=== PATIENT | male | born 1950 | race American Indian/Alaskan Native ===

== ENCOUNTER 2021-12-19 23:03 | Inpatient (IN) | payer MEDICARE, OTHER ==
--- NOTE | 2021-12-20 00:12 | Emergency Department Report ---
ED General Adult HPI - General Chief complaint: High BP Stated complaint: HTN, WEAKNESS Time Seen by Provider: 12/19/21 23:49 Source: patient, EMS (Verbal report received from emergency medical services. EMS documentation not available at time of chart dictation ), RN notes reviewed, old records reviewed Mode of arrival: Stretcher Limitations: Altered Mental Status, Physical Limitation - History of Present Illness Initial comments: The patient was evaluated in the emergency department for symptoms described in the history of present illness. He/she was evaluated in the context of the global COVID-19 pandemic, which necessitated consideration that the patient might be at risk for infection with the virus that causes COVID-19. Institutional protocols and algorithms that pertain to the evaluation of patients at risk for COVID-19 are in a state of rapid change based on information released by regulatory bodies including the CDC and federal and state organizations. These policies and algorithms were followed during the patient's care in the emergency department. Please note that these policies, procedures and recommendations changed on a rapid basis. Past medical history: Hypertension, stroke, contracture, left upper extremity weakness, known history of cervical cord compression. Admitted to this hospital June 2021. Subacute rehab was approved and recommended, patient initially agreed to go for subacute rehab, but then at last-minute refused. Discharged home with home health with 16/02 family supervision. Also has a past medical history of rhabdomyolysis. The patient is a pleasant and cooperative 71-year-old gentleman. The patient endorses no complaints. He is brought to the hospital by emergency medical services. As per EMS verbal report, an unknown individual contacted emergency medical services. EMS reports the patient is found at home, covered in feces, and laying down. His last known well time is not known. EMS reports that there is a camera in the room, the forming and assembling supervisor/data center operator of which is not known. The patient is awake and alert to name, but he does not recall the month, year, or the president. However, with prodding, he was able to recall the president's name. He denies physical pain, chest pain, urinary symptoms at this time. He is pleasant and cooperative -: unknown - Related Data Previous Rx's Medication Instructions Recorded Last Taken Type amLODIPine 5 mg PO DAILY #30 tab 05/07/16 07/11/21 09:00 Rx traMADoL [Ultram 50 MG tab] 50 mg PO Q6HR PRN #10 tablet 05/07/16 07/10/21 20:35 Rx Aspirin EC [Halfprin EC] 81 mg PO QDAY #30 tablet. 07/22/21 Unknown Rx Allergies Allergy/AdvReac Type Severity Reaction Status Date / Time No Known Allergies Allergy Verified 07/12/21 23:43 ED Review of Systems ROS: Stated complaint: HTN, WEAKNESS Other details as noted in HPI Comment: All other systems reviewed and negative ED Past Medical Hx - Past Medical History Hx Hypertension: Yes Hx CVA: Yes (LEFT SIDED WEAKNESS 2013) Hx Congestive Heart Failure: No Hx Diabetes: Yes Hx Sickle Cell Disease: No Hx Asthma: No Hx COPD: No Hx Dementia: Yes Hx HIV: No - Social History Smoking Status: Never Smoker - Medications Home Medications: Home Medications Medication Instructions Recorded Confirmed Last Taken Type amLODIPine 5 mg PO DAILY #30 tab 05/07/16 07/14/21 07/11/21 09:00 Rx traMADoL [Ultram 50 MG tab] 50 mg PO Q6HR PRN #10 tablet 05/07/16 07/14/21 07/10/21 20:35 Rx Aspirin EC [Halfprin EC] 81 mg PO QDAY #30 tablet. 07/22/21 Unknown Rx ED Physical Exam - General Limitations: Altered Mental Status, Physical Limitation General appearance: in no apparent distress - Head Head exam: Present: atraumatic, normocephalic - Eye Eye exam: Present: normal appearance, EOMI. Absent: nystagmus - ENT ENT exam: Present: normal exam, normal orophraynx, mucous membranes moist, normal external ear exam - Neck Neck exam: Present: normal inspection, full ROM. Absent: tenderness, meningismus - Respiratory Respiratory exam: Present: normal lung sounds bilaterally. Absent: respiratory distress, wheezes, rales, rhonchi, stridor, decreased breath sounds - Cardiovascular Cardiovascular Exam: Present: regular rate, normal rhythm, normal heart sounds. Absent: bradycardia, tachycardia, irregular rhythm, systolic murmur, diastolic murmur, rubs, gallop - GI/Abdominal GI/Abdominal exam: Present: soft. Absent: distended, tenderness, guarding, rebound, rigid, pulsatile mass - Rectal Rectal exam: Absent: normal inspection (Pressure ulcer is noted on the left gluteal cheek) - Extremities Exam Extremities exam: Present: full ROM (Right arm and right leg). Absent: normal inspection (Contractures noted to left arm) - Back Exam Back exam: Present: normal inspection. Absent: tenderness, CVA tenderness (R), CVA tenderness (L), paraspinal tenderness, vertebral tenderness - Neurological Exam Neurological exam: Present: altered (Patient is awake and alert to name and follows commands. Does not know the year.), other (There is no facial droop. The tongue is midline. 5/5 strength right arm and right leg. Contractures not ed in left arm. Sensation is intact to light touch left arm and left leg.). Absent: normal gait (Patient not able to walk) - Psychiatric Psychiatric exam: Present: normal affect, normal mood - Skin Skin exam: Present: warm, dry, intact, normal color. Absent: rash ED Course Vital Signs 12/19/21 12/20/21 23:09 01:48 Temperature 98.2 F Pulse Rate 60 100 H Respiratory 20 Rate Blood Pressure 135/74 Blood Pressure 190/110 [Right] O2 Sat by Pulse 99 Oximetry - Reevaluation(s) Reevaluation #1: 12/20/21 00:40 Differential diagnosis, including but not limited to: Disability, pneumonia, UTI, elevated CK, rhabdomyolysis, stroke, hypertension, case management patient Assessment and plan: 71-year-old gentleman who clearly cannot take care of himself, found at home, covered in feces, with a report of camera in the room, managed by an unknown individual, slightly confused, with elevated blood pressure, last known well time is not known. Place patient on desk monitor, gown, obtain laboratory studies EKG, chest x- ray, urinalysis, noncontrast CT scan of the brain. Start gentle fluids, and antihypertensive therapy. Reassess. 12/20/21 01:42 Laboratory studies are reviewed and appreciated. Suspect that elevated troponin is a type II troponin leak. CAT scan of the brain negative for acute findings. Chest x-ray negative for acute findings. Awaiting urinalysis. Aspirin ordered. Patient to be admitted to the medical service for encephalopathy, hypertensive urgency, elevated troponin of nonspecific significance. Hospitalist was paged, awaiting callback 12/20/21 01:49 Dr Jerardo Godinez to admit to [facility] ED Medical Decision Making - Lab Data Result diagrams: 12/20/21 00:19 12/20/21 00:19 Vital Signs 12/19/21 23:09 Temperature 98.2 F Pulse Rate 60 Respiratory 20 Rate Blood Pressure 190/110 [Right] O2 Sat by Pulse 99 Oximetry Lab Results 12/20/21 12/20/21 12/20/21 Range/Units 00:19 00:19 00:19 WBC 5.8 (4.5-11.0) K/mm3 RBC 4.98 (3.65-5.03) M/mm3 Hgb 11.8 (11.8-15.2) gm/dl Hct 37.3 (35.5-45.6) % MCV 75 L (84-94) fl MCH 24 L (28-32) pg MCHC 32 (32-34) % RDW 15.0 (13.2-15.2) % Plt Count 171 (140-440) K/mm3 Lymph % (Auto) 25.2 (13.4-35.0) % [place] % (Auto) 7.4 H (0.0-7.3) % Eos % (Auto) 3.5 (0.0-4.3) % Baso % (Auto) 0.7 (0.0-1.8) % Lymph # (Auto) 1.5 (1.2-5.4) K/mm3 [place] # (Auto) 0.4 (0.0-0.8) K/mm3 Eos # (Auto) 0.2 (0.0-0.4) K/mm3 Baso # (Auto) 0.0 (0.0-0.1) K/mm3 Seg Neutrophils % 63.2 (40.0-70.0) % Seg Neutrophils # 3.7 (1.8-7.7) K/mm3 PT 13.6 (12.2-14.9) Sec. INR 0.94 (0.87-1.13) Sodium 139 (137-145) mmol/L Potassium 3.9 (3.6-5.0) mmol/L Chloride 101.4 (98-107) mmol/L Carbon Dioxide 25 (22-30) mmol/L Anion Gap 17 mmol/L BUN 24 H (9-20) mg/dL Creatinine 1.2 (0.8-1.3) mg/dL Estimated GFR > 60 ml/min BUN/Creatinine Ratio 20 % Glucose 89 (75-100) mg/dL Lactic Acid (0.7-2.0) mmol/L Calcium 9.3 (8.4-10.2) mg/dL Total Bilirubin 0.20 (0.1-1.2) mg/dL AST 24 (5-40) units/L ALT 24 (7-56) units/L Alkaline Phosphatase 67 (35-129) units/L Ammonia (25-60) umol/L Total Creatine Kinase 448 H (55-170) units/L Troponin T 0.045 H (0.00-0.029) ng/mL Total Protein 6.7 (6.3-8.2) g/dL Albumin 3.8 L (3.9-5) g/dL Albumin/Globulin Ratio 1.3 % TSH (0.270-4.200) mlU/mL Salicylates (2.8-20.0) mg/dL Acetaminophen (10.0-30.0) ug/mL Plasma/Serum Alcohol (0-0.07) % 12/20/21 12/20/21 12/20/21 Range/Units 00:19 00:19 00:19 WBC (4.5-11.0) K/mm3 RBC (3.65-5.03) M/mm3 Hgb (11.8-15.2) gm/dl Hct (35.5-45.6) % MCV (84-94) fl MCH (28-32) pg MCHC (32-34) % RDW (13.2-15.2) % Plt Count (140-440) K/mm3 Lymph % (Auto) (13.4-35.0) % [place] % (Auto) (0.0-7.3) % Eos % (Auto) (0.0-4.3) % Baso % (Auto) (0.0-1.8) % Lymph # (Auto) (1.2-5.4) K/mm3 [place] # (Auto) (0.0-0.8) K/mm3 Eos # (Auto) (0.0-0.4) K/mm3 Baso # (Auto) (0.0-0.1) K/mm3 Seg Neutrophils % (40.0-70.0) % Seg Neutrophils # (1.8-7.7) K/mm3 PT (12.2-14.9) Sec. INR (0.87-1.13) Sodium (137-145) mmol/L Potassium (3.6-5.0) mmol/L Chloride (98-107) mmol/L Carbon Dioxide (22-30) mmol/L Anion Gap mmol/L BUN (9-20) mg/dL Creatinine (0.8-1.3) mg/dL Estimated GFR ml/min BUN/Creatinine Ratio % Glucose (75-100) mg/dL Lactic Acid 1.10 (0.7-2.0) mmol/L Calcium (8.4-10.2) mg/dL Total Bilirubin (0.1-1.2) mg/dL AST (5-40) units/L ALT (7-56) units/L Alkaline Phosphatase (35-129) units/L Ammonia 27.0 (25-60) umol/L Total Creatine Kinase (55-170) units/L Troponin T (0.00-0.029) ng/mL Total Protein (6.3-8.2) g/dL Albumin (3.9-5) g/dL Albumin/Globulin Ratio % TSH 2.820 (0.270-4.200) mlU/mL Salicylates (2.8-20.0) mg/dL Acetaminophen (10.0-30.0) ug/mL Plasma/Serum Alcohol (0-0.07) % 12/20/21 12/20/21 12/20/21 Range/Units 00:19 00:19 00:19 WBC (4.5-11.0) K/mm3 RBC (3.65-5.03) M/mm3 Hgb (11.8-15.2) gm/dl Hct (35.5-45.6) % MCV (84-94) fl MCH (28-32) pg MCHC (32-34) % RDW (13.2-15.2) % Plt Count (140-440) K/mm3 Lymph % (Auto) (13.4-35.0) % [place] % (Auto) (0.0-7.3) % Eos % (Auto) (0.0-4.3) % Baso % (Auto) (0.0-1.8) % Lymph # (Auto) (1.2-5.4) K/mm3 [place] # (Auto) (0.0-0.8) K/mm3 Eos # (Auto) (0.0-0.4) K/mm3 Baso # (Auto) (0.0-0.1) K/mm3 Seg Neutrophils % (40.0-70.0) % Seg Neutrophils # (1.8-7.7) K/mm3 PT (12.2-14.9) Sec. INR (0.87-1.13) Sodium (137-145) mmol/L Potassium (3.6-5.0) mmol/L Chloride (98-107) mmol/L Carbon Dioxide (22-30) mmol/L Anion Gap mmol/L BUN (9-20) mg/dL Creatinine (0.8-1.3) mg/dL Estimated GFR ml/min BUN/Creatinine Ratio % Glucose (75-100) mg/dL Lactic Acid (0.7-2.0) mmol/L Calcium (8.4-10.2) mg/dL Total Bilirubin (0.1-1.2) mg/dL AST (5-40) units/L ALT (7-56) units/L Alkaline Phosphatase (35-129) units/L Ammonia (25-60) umol/L Total Creatine Kinase (55-170) units/L Troponin T (0.00-0.029) ng/mL Total Protein (6.3-8.2) g/dL Albumin (3.9-5) g/dL Albumin/Globulin Ratio % TSH (0.270-4.200) mlU/mL Salicylates < 0.3 L (2.8-20.0) mg/dL Acetaminophen 5.0 L (10.0-30.0) ug/mL Plasma/Serum Alcohol < 0.01 (0-0.07) % - EKG Data -: EKG Interpreted by Tn EKG shows normal: sinus rhythm Rate: normal - EKG Data 12/20/21 00:36 The EKG is interpreted at 23: 47 Sinus rhythm, 62 bpm. Leftward axis deviation, left anterior fascicular block, left ventricular hypertrophy. This is an abnormal EKG. This is not a STEMI. There is motion artifact, QTC 4 3 7 ms. QRS 1 1 7 ms. Essentially appears to be unchanged from prior EKG from 06/2021 - Radiology Data Radiology results: pending, report reviewed, image reviewed CHEST 1 VIEW INDICATION / CLINICAL INFORMATION: Altered Mental Status STUDY TIME: 18 COMPARISON: 07/13/2021 FINDINGS: SUPPORT DEVICES: None HEART / MEDIASTINUM: No significant abnormality. LUNGS / PLEURA: Patient's arm obscures much of the chest making evaluation quite difficult, particularly of the left hemithorax. No definite pneumonic infiltrate is seen as best can be determined. No obvious pleural effusions are seen. No pneumothorax. ADDITIONAL FINDINGS: No significant additional findings. Signer Name: Eldon Nuñez MD Signed: 12/20/2021 12:18 AM Workstation Name: [employer] CT HEAD WITHOUT CONTRAST INDICATION: Altered Mental Status TECHNIQUE: All CT scans at this location are performed using CT dose reduction for ALARA by means of automated exposure control. COMPARISON: None available. FINDINGS: BRAIN: No hemorrhage or mass effect are seen. No evidence of acute infarction is noted. The prominent dilatation of the lateral and third ventricles is again seen without change. This is again greater in the right lateral ventricle than the left. Mild cortical atrophic changes are again seen. Mild white matter microvascular changes are noted. Small area of hypodensity is again seen in the upper left parietal cortex. ORBITS: Normal as visualized. SOFT TISSUES OF HEAD: Normal. CALVARIUM: Normal. VISUALIZED PARANASAL SINUSES AND MASTOID AIR CELLS: Clear. ADDITIONAL FINDINGS: None. IMPRESSION: No acute intracranial abnormality. Signer Name: Eldon Nuñez MD Signed: 12/20/2021 12:36 AM Workstation Name: [employer] Critical care attestation.: If time is entered above; I have spent that time in minutes in the direct care of this critically ill patient, excluding procedure time. ED Disposition Clinical Impression: Hypertensive urgency, Elevated troponin, Left hemiparesis, History of stroke, Confusion Disposition: 09 ADMITTED INPATIENT Is pt being admited?: Yes Does the pt Need Aspirin: Yes Condition: Stable
[2021-12-20 00:40] LABS: Basophils % (Auto) 0.7 % (0.0-1.8); Eosinophils # (Auto) 0.2 K/mm3 (0.0-0.4); Eosinophils % (Auto) 3.5 % (0.0-4.3); Hematocrit 37.3 % (35.5-45.6); Hemoglobin 11.8 gm/dl (11.8-15.2); Lymphocytes # (Auto) 1.5 K/mm3 (1.2-5.4); Lymphocytes % (Auto) 25.2 % (13.4-35.0); Mean Corpuscular HGB Conc 32 % (32-34); Mean Corpuscular Volume 75 fl (84-94); Monocytes # (Auto) 0.4 K/mm3 (0.0-0.8); Monocytes % (Auto) 7.4 % (0.0-7.3); Platelet Count 171 K/mm3 (140-440); Red Blood Count 4.98 M/mm3 (3.65-5.03)
[2021-12-20] MEDS ORDERED: SODIUM CHLORIDE 0.9% 500 ML 500 ML IV ONE (00:41)
[2021-12-20] MEDS ORDERED: hydrALAZINE 20 MG/1 ML INJ IV ONE (00:41)
[2021-12-20 00:59] LABS: Alanine Aminotransferase 24 units/L (7-56); Albumin 3.8 g/dL (3.9-5); BUN/Creatinine Ratio 20; Blood Urea Nitrogen 24 mg/dL (9-20); Calcium 9.3 mg/dL (8.4-10.2); Hemolysis Index 12
[2021-12-20 01:13] LABS: INR 0.94 (0.87-1.13)
[2021-12-20 01:14] LABS: Partial Thromboplastin Time 37.1 Sec. (24.2-36.6)
[2021-12-20 01:21] LABS: Chol/HDL Ratio 3.08 %; HDL Cholesterol 72 mg/dL (40-59); LDL Cholesterol,Direct 129 mg/dL (50-130)
--- NOTE | 2021-12-20 01:23 | XRay Report ---
CHEST 1 VIEW INDICATION / CLINICAL INFORMATION: Altered Mental Status STUDY TIME: 18 COMPARISON: 07/13/2021 FINDINGS: SUPPORT DEVICES: None HEART / MEDIASTINUM: No significant abnormality. LUNGS / PLEURA: Patient's arm obscures much of the chest making evaluation quite difficult, particula rly of the left hemithorax. No definite pneumonic infiltrate is seen as best can be determined. No ob vious pleural effusions are seen. No pneumothorax. ADDITIONAL FINDINGS: No significant additional findings. Signer Name: Eldon Nuñez MD Signed: 12/20/2021 1:18 AM Workstation Name: [id number]
[2021-12-20 01:32] LABS: Bilirubin,Urine NEG (Negative); Blood,Urine SM (Negative); Color,Urine Yellow (Yellow); Protein,Urine <15 mg/dL mg/dL (Negative); RBC,Urine < 1.0 /HPF (0.0-6.0); WBC,Urine < 1.0 /HPF (0.0-6.0)
--- NOTE | 2021-12-20 01:40 | Cat Scan Report ---
CT HEAD WITHOUT CONTRAST INDICATION: Altered Mental Status TECHNIQUE: All CT scans at this location are performed using CT dose reduction for ALARA by means of automated exposure control. COMPARISON: None available. FINDINGS: BRAIN: No hemorrhage or mass effect are seen. No evidence of acute infarction is noted. The prominent dilatation of the lateral and third ventricles is again seen without change. This is again greater i n the right lateral ventricle than the left. Mild cortical atrophic changes are again seen. Mild whit e matter microvascular changes are noted. Small area of hypodensity is again seen in the upper left p arietal cortex. ORBITS: Normal as visualized. SOFT TISSUES OF HEAD: Normal. CALVARIUM: Normal. VISUALIZED PARANASAL SINUSES AND MASTOID AIR CELLS: Clear. ADDITIONAL FINDINGS: None. IMPRESSION: No acute intracranial abnormality. Signer Name: Eldon Nuñez MD Signed: 12/20/2021 1:36 AM Workstation Name: [id number]
[2021-12-20] MEDS ORDERED: ASPIRIN 81 MG TAB CHEW PO ONE (01:43)
[2021-12-20] MEDS ORDERED: MAGNESIUM HYDROXIDE (MOM) ORAL LIQD UDC PO PRN (02:46)
[2021-12-20] MEDS ORDERED: MORPHINE 2 MG/1 ML INJ IV PRN (02:46)
[2021-12-20] MEDS ORDERED: MORPHINE 4 MG/1 ML INJ IV PRN (02:46)
[2021-12-20] MEDS ORDERED: DEXTROSE 50% IN WATER (25GM) 50 ML SYRINGE IV PRN (02:46)
[2021-12-20] MEDS ORDERED: ACETAMINOPHEN 325 MG TAB PO PRN (02:46)
[2021-12-20] MEDS ORDERED: ONDANSETRON 4 MG/2 ML INJ IV PRN (02:46)
--- NOTE | 2021-12-20 02:58 | History and Physical Report ---
History of Present Illness Date of examination: 12/20/21 Date of admission: 12/20/2021 Chief complaint: Altered Mental Status History of present illness: 71-year-old -[place] male with known history of hypertension, CVA with residual left-sided upper extremity weakness, contracture and history of cervical cord compression brought into the emergency room today for evaluation of confusion. There was a welfare check on patient today and patient was said to have been found at home confused and covered in feces lying down. Patient was admitted sometime in June 2021 and was supposed to be going for subacute rehab which he turned out. He lives by himself at home. He has home health. Patient denies any fever or chills, no chest pain or shortness of breath, no nausea vomiting and no abdominal pain. He denies any hematuria or dysuria. Upon arrival in the emergency room blood pressure was quite elevated and patient was given IV hydralazine with some improvement. Work-up in the emergency room today, chest x-ray shows no acute findings. CT of the head shows no acute findings. Past History Past Medical History: diabetes, stroke (With left sided weakness) Past Surgical History: No surgical history Social history: no significant social history Family history: no significant family history Medications and Allergies Allergies Allergy/AdvReac Type Severity Reaction Status Date / Time No Known Allergies Allergy Verified 07/12/21 23:43 Home Medications Medication Instructions Recorded Confirmed Last Taken Type amLODIPine 5 mg PO DAILY #30 tab 05/07/16 07/14/21 07/11/21 09:00 Rx traMADoL [Ultram 50 MG tab] 50 mg PO Q6HR PRN #10 tablet 05/07/16 07/14/21 07/10/21 20:35 Rx Aspirin EC [Halfprin EC] 81 mg PO QDAY #30 tablet 07/22/21 Unknown Rx Active Meds: Active Medications Acetaminophen (Acetaminophen 325 Mg Tab) 650 mg PO Q4H PRN PRN Reason: Pain MILD(1-3)/Fever >100.5/BROWN Dextrose (Dextrose 50% In Water (25gm) 50 Ml Syringe) 50 ml IV Q30MIN PRN; Protocol PRN Reason: Hypoglycemia Insulin Human Lispro (Insulin Lispro 100 Unit/Ml) 0 unit SUB-Q ACHS KRISTINA; Protocol Magnesium Hydroxide (Magnesium Hydroxide (Mom) Oral Liqd Udc) 30 ml PO Q4H PRN PRN Reason: Constipation Morphine Sulfate (Morphine 2 Mg/1 Ml Inj) 2 mg IV Q4H PRN PRN Reason: Pain, Moderate (4-6) Morphine Sulfate (Morphine 4 Mg/1 Ml Inj) 4 mg IV Q4H PRN PRN Reason: Pain , Severe (7-10) Ondansetron HCl (Ondansetron 4 Mg/2 Ml Inj) 4 mg IV Q8H PRN PRN Reason: Nausea And Vomiting Sodium Chloride (Sodium Chloride 0.9% 10 Ml Flush Syringe) 10 ml IV BID KRISTINA Sodium Chloride (Sodium Chloride 0.9% 10 Ml Flush Syringe) 10 ml IV PRN PRN PRN Reason: LINE FLUSH Review of Systems Constitutional: no fever, no chills Ears, nose, mouth and throat: no nasal congestion, no sore throat Cardiovascular: no chest pain, no palpitations Respiratory: no cough, no shortness of breath Gastrointestinal: no abdominal pain, no nausea, no vomiting, no diarrhea Genitourinary Male: no dysuria, no hematuria, no nocturia Musculoskeletal: no neck pain, no low back pain Integumentary: no rash, no pruritis Neurological: confusion, no headaches Psychiatric: no anxiety, no depression Endocrine: no polyphagia, no polydipsia, no polyuria, no nocturia Exam - Constitutional Vitals: Temp Pulse Resp BP Pulse Ox 98.2 F 100 H 20 135/74 99 12/19/21 23:09 12/20/21 01:48 12/19/21 23:09 12/20/21 01:48 12/19/21 23:09 General appearance: Present: no acute distress, well-nourished - EENT Eyes: Present: PERRL, EOM intact. Absent: scleral icterus ENT: hearing intact, clear oral mucosa, dentition normal - Neck Neck: Present: supple, normal ROM - Respiratory Respiratory effort: normal Respiratory: bilateral: CTA - Cardiovascular Rhythm: regular Heart Sounds: Present: S1 & S2. Absent: gallop, systolic murmur, diastolic murmur, rub, click - Extremities Extremities: no ischemia, No edema, abnormal (Contracture left upper extremity) Peripheral Pulses: within normal limits - Abdominal General gastrointestinal: Present: soft, non-tender, non-distended, normal bowel sounds. Absent: mass - Integumentary Integumentary: Present: clear, warm, dry, normal turgor. Absent: rash - Musculoskeletal Musculoskeletal: strength equal bilaterally - Psychiatric Psychiatric: appropriate mood/affect, intact judgment & insight, memory intact, cooperative - Neurologic Neurologic: CNII-XII intact, no focal deficits, moves all extremities HEART Score - HEART Score Troponin: Troponin T 0.045 ng/mL (0.00-0.029) H 12/20/21 00:19 Results - Labs CBC & Chem 7: 12/20/21 00:19 12/20/21 00:19 Labs: Abnormal lab results 12/20/21 12/20/21 12/20/21 Range/Units 00:19 00:19 00:19 MCV 75 L (84-94) fl MCH 24 L (28-32) pg [place] % (Auto) 7.4 H (0.0-7.3) % APTT 37.1 H (24.2-36.6) Sec. BUN 24 H (9-20) mg/dL Total Creatine Kinase 448 H (55-170) units/L Troponin T 0.045 H (0.00-0.029) ng/mL Albumin 3.8 L (3.9-5) g/dL Cholesterol 222 H (50-199) mg/dL HDL Cholesterol 72 H (40-59) mg/dL Salicylates (2.8-20.0) mg/dL Acetaminophen (10.0-30.0) ug/mL 12/20/21 12/20/21 Range/Units 00:19 00:19 MCV (84-94) fl MCH (28-32) pg [place] % (Auto) (0.0-7.3) % APTT (24.2-36.6) Sec. BUN (9-20) mg/dL Total Creatine Kinase (55-170) units/L Troponin T (0.00-0.029) ng/mL Albumin (3.9-5) g/dL Cholesterol (50-199) mg/dL HDL Cholesterol (40-59) mg/dL Salicylates < 0.3 L (2.8-20.0) mg/dL Acetaminophen 5.0 L (10.0-30.0) ug/mL Assessment and Plan - Patient Problems (1) Confusion Current Visit: No Status: Acute Plan to address problem: Patient back to baseline Work-up so far has been negative Will monitor mental status. Check MRI of the brain to rule out CVA. (2) Elevated troponin Current Visit: No Status: Acute Plan to address problem: Possibly type II troponin leak However will trend troponin levels. Consult placed to cardiology for recommendations. (3) Hypertensive urgency Current Visit: No Status: Acute Plan to address problem: We will resume routine home medications and monitor vital signs closely. (4) DVT prophylaxis Current Visit: No Status: Acute Plan to address problem: Patient placed on subcutaneous heparin. (5) Full code status Current Visit: No Status: Acute Plan to address problem: Patient is full code.
[2021-12-20] MEDS ORDERED: SODIUM CHLORIDE 0.9% 1000 ML 1,000 ML IV SCH (05:15)
[2021-12-20] MEDS: cefTRIAXone/NS 1 GM/50 ML 1 GM/50 ML BAG IV SCH (07:32)
[2021-12-20] MEDS: INSULIN LISPRO 100 UNIT/ML SUB-Q SCH ×4 (08:37→21:04)
--- NOTE | 2021-12-20 10:52 | Consultation ---
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 There was a welfare check on patient today and patient was said to have been found at home confused and covered in feces lying down. Patient was admitted sometime in June 2021 and was supposed to be going for subacute rehab which he turned out. He lives by himself at home. He has home health. Patient denies any fever or chills, no chest pain or shortness of breath, no nausea vomiting and no abdominal pain. He denies any hematuria or dysuria. Upon arrival in the emergency room blood pressure was quite elevated and patient was given IV hydralazine with some improvement. Work-up in the emergency room today, chest x-ray shows no acute findings. CT of the head shows no acute findings. Neurology consulted for evaluation of status--today he is alert he is with border line mental incapacity lives alone, he is with hx of CP and left side weaknmess since 4 years old , denied hx of seizure in ER BP was elevated as well as CPK he was in fecal and bladder incontinence confused. Past History Past Medical History: diabetes, stroke (With left sided weakness) Cerebral palsy Past Surgical History: No surgical history Social history: no significant social history Family history: no significant family history Medications and Allergies Allergies Allergy/AdvReac Type Severity Reaction Status Date / Time No Known Allergies Allergy Verified 07/12/21 23:43 Home Medications Medication Instructions Recorded Confirmed Last Taken Type amLODIPine 5 mg PO DAILY #30 tab 05/07/16 07/14/21 07/11/21 09:00 Rx traMADoL [Ultram 50 MG tab] 50 mg PO Q6HR PRN #10 tablet 05/07/16 07/14/21 07/10/21 20:35 Rx Aspirin EC [Halfprin EC] 81 mg PO QDAY #30 tablet 07/22/21 Unknown Rx Active Meds: Active Medications Acetaminophen (Acetaminophen 325 Mg Tab) 650 mg PO Q4H PRN PRN Reason: Pain MILD(1-3)/Fever >100.5/BROWN Dextrose (Dextrose 50% In Water (25gm) 50 Ml Syringe) 50 ml IV Q30MIN PRN; Protocol PRN Reason: Hypoglycemia Insulin Human Lispro (Insulin Lispro 100 Unit/Ml) 0 unit SUB-Q ACHS KRISTINA; Protocol Magnesium Hydroxide (Magnesium Hydroxide (Mom) Oral Liqd Udc) 30 ml PO Q4H PRN PRN Reason: Constipation Morphine Sulfate (Morphine 2 Mg/1 Ml Inj) 2 mg IV Q4H PRN PRN Reason: Pain, Moderate (4-6) Morphine Sulfate (Morphine 4 Mg/1 Ml Inj) 4 mg IV Q4H PRN PRN Reason: Pain , Severe (7-10) Ondansetron HCl (Ondansetron 4 Mg/2 Ml Inj) 4 mg IV Q8H PRN PRN Reason: Nausea And Vomiting Sodium Chloride (Sodium Chloride 0.9% 10 Ml Flush Syringe) 10 ml IV BID KRISTINA Sodium Chloride (Sodium Chloride 0.9% 10 Ml Flush Syringe) 10 ml IV PRN PRN PRN Reason: LINE FLUSH Review of Systems Constitutional: no fever, no chills Ears, nose, mouth and throat: no nasal congestion, no sore throat Cardiovascular: no chest pain, no palpitations Respiratory: no cough, no shortness of breath Gastrointestinal: no abdominal pain, no nausea, no vomiting, no diarrhea Genitourinary Male: no dysuria, no hematuria, no nocturia Musculoskeletal: no neck pain, no low back pain Integumentary: no rash, no pruritis Neurological: confusion, no headaches Psychiatric: no anxiety, no depression Endocrine: no polyphagia, no polydipsia, no polyuria, no nocturia Exam Past History Past Medical History: diabetes, stroke (With left sided weakness) Past Surgical History: No surgical history Social history: no significant social history Family history: no significant family history Medications and Allergies Allergies Allergy/AdvReac Type Severity Reaction Status Date / Time No Known Allergies Allergy Verified 07/12/21 23:43 Home Medications Medication Instructions Recorded Confirmed Last Taken Type amLODIPine 5 mg PO DAILY #30 tab 05/07/16 07/14/21 07/11/21 09:00 Rx traMADoL [Ultram 50 MG tab] 50 mg PO Q6HR PRN #10 tablet 05/07/16 07/14/21 07/10/21 20:35 Rx Aspirin EC [Halfprin EC] 81 mg PO QDAY #30 tablet. 07/22/21 Unknown Rx Active Meds: Active Medications Acetaminophen (Acetaminophen 325 Mg Tab) 650 mg PO Q4H PRN PRN Reason: Pain MILD(1-3)/Fever >100.5/BROWN Dextrose (Dextrose 50% In Water (25gm) 50 Ml Syringe) 0 ml IV Q30MIN PRN; Protocol PRN Reason: Hypoglycemia Sodium Chloride (Nacl 0.9% 1000 Ml) 1,000 mls @ 75 mls/hr IV DIRECT KRISTINA Ceftriaxone Sodium (Rocephin/Ns 1 Gm/50 Ml) 1 gm in 50 mls @ 100 mls/hr IV Q24H KRISTINA; Protocol Last Admin: 12/20/21 07:32 Dose: 100 mls/hr Insulin Human Lispro (Insulin Lispro 100 Unit/Ml) 0 unit SUB-Q ACHS KRISTINA; Protocol Last Admin: 12/20/21 08:37 Dose: Not Given Magnesium Hydroxide (Magnesium Hydroxide (Mom) Oral Liqd Udc) 30 ml PO Q4H PRN PRN Reason: Constipation Morphine Sulfate (Morphine 2 Mg/1 Ml Inj) 2 mg IV Q4H PRN PRN Reason: Pain, Moderate (4-6) Last Admin: 12/20/21 07:33 Dose: 2 mg Morphine Sulfate (Morphine 4 Mg/1 Ml Inj) 4 mg IV Q4H PRN PRN Reason: Pain , Severe (7-10) Ondansetron HCl (Ondansetron 4 Mg/2 Ml Inj) 4 mg IV Q8H PRN PRN Reason: Nausea And Vomiting Sodium Chloride (Sodium Chloride 0.9% 10 Ml Flush Syringe) 10 ml IV BID KRISTINA Last Admin: 12/20/21 09:11 Dose: Not Given Sodium Chloride (Sodium Chloride 0.9% 10 Ml Flush Syringe) 10 ml IV PRN PRN PRN Reason: LINE FLUSH Physical Examination - Vital Signs Vital Signs: Vital Signs Temp Pulse Resp BP Pulse Ox 98.2 F 60 20 190/110 99 12/19/21 23:09 12/19/21 23:09 12/19/21 23:09 12/19/21 23:09 12/19/21 23:09 - Constitutional General appearance: comfortable - EENT EENT: Present: PERRL, mucous membranes moist - Respiratory Respiratory: Present: lungs clear, rhonchi - Cardiovascular Cardiovascular: Present: regular rate, normal S1, normal S2 Extremities: Present: no peripheral edema bilatateraly, no clubbing, cyanosis - Gastrointestinal Gastrointestinal: Present: normoactive bowel sounds - Integumentary Integumentary: Present: normal - Neurologic Cranial nerve examination: PERRL, EOMI, facial droop Speech examination: intact Detailed motor examination: other (he is with left side contracture upper> lower , none sustained clonus L>R) - Psychiatric Psychiatric: Present: other (alert oriented to hospital birthdate, not date,not president name ) Results - Laboratory Findings CBC and BMP: 12/20/21 00:19 12/20/21 00:19 Abnormal Lab Findings: Abnormal Labs 12/20/21 12/20/21 12/20/21 00:19 00:19 00:19 MCV 75 L MCH 24 L [place] % (Auto) 7.4 H APTT 37.1 H BUN 24 H Total Creatine Kinase 448 H Troponin T 0.045 H Albumin 3.8 L Cholesterol 222 H HDL Cholesterol 72 H Salicylates Acetaminophen 12/20/21 12/20/21 00:19 00:19 MCV MCH [place] % (Auto) APTT BUN Total Creatine Kinase Troponin T Albumin Cholesterol HDL Cholesterol Salicylates < 0.3 L Acetaminophen 5.0 L Assessment and Plan Assessment and Plan 71-year-old -Italian male with known history of hypertension, CVA with residual left-sided upper extremity weakness, contracture and history of cervical cord compression brought into the emergency room today for evaluation of confusion. There was a welfare check on patient today and patient was said to have been f ound at home confused and covered in feces lying down. Patient was admitted sometime in June 2021 and was supposed to be going for subacute rehab which he turned out. He lives by himself at home. He has home health. - Patient Problems # Acute Confusional stat resolved -finding from hx and exam is suggestive of seizure -he lives alone and is with borderline mental incapacity -left side weakness related to CP -no hx of seizure -HTN and elevated CPK on admission -EEG today -MRI brainwith gd -Seizure precaution -start Keppra 500 mg po bid -started on ASA #81 mg -LDL#129 -Lipitor 40 mg # Hx of left side weakness -possibly CP since 4 years old -left side myoconus # Hx of spinal cord injury as per record -he is with fecal and bladder incontinence -use Dipper # Elevated troponin Possibly type II troponin leak However will trend troponin levels. Consult placed to cardiology for recommendations. # Hypertensive urgency -We will resume routine home medications and monitor vital signs closely. # DVT prophylaxis -Patient placed on subcutaneous heparin. # Full code status -Patient is full code. PLAN 1- Keppra 500 mg bid 2-Seizure precaution 3- MRI brain w gd 4- EEG 5- Ativan prn for seizure 6- ASA 81 mg and Lipitor 40 mg 7- Maintain BP medications 8- Pt therapy will follow
--- NOTE | 2021-12-20 12:44 | Event Note ---
Date: 12/20/21 Patient seen and examined This is the second visit after midnight Follow neurology recommendation and follow MRI brain result PT EDMOND oliver
[2021-12-20] MEDS: levETIRAcetam 500 MG TAB PO SCH ×2 (14:19→21:04)
--- NOTE | 2021-12-20 16:50 | Magnetic Resonance Report ---
MR brain wo/w con INDICATION / CLINICAL INFORMATION: 71 years Male; Seizure disorder. TECHNIQUE: Multiplanar, multisequence MR images of the brain were obtained. COMPARISON: The study is compared to the previous MRI of 07/15/2021. FINDINGS: BRAIN / INTRACRANIAL CONTENTS: There have been interval evolutionary changes of the extensive areas o f acute infarction involving the cerebral hemispheres, greater on the right, particularly along the r ight frontoparietal junction, from 07/16/2021. There is resulting encephalomalacia. The diffusion ari ging reveals no clear evidence of acute infarction. There is continued prominent enlargement of the third and lateral ventricles, greater on the right wh ich also correlates with the prior study. There is moderate cerebral atrophy which includes the hippo campi. No interval developing extra-axial fluid collections or significant mass effect is identified. The motion particularly degrades the postcontrast sequences, the last be acquired. However, no defin itive intracranial enhancing lesions are appreciated. CRANIOCERVICAL JUNCTION: No significant abnormality. VASCULAR FLOW-VOIDS: No significant abnormality. ORBITS: No significant abnormality of visualized orbits. SINUSES / MASTOIDS: No significant abnormality in the visualized paranasal sinuses or mastoid air benjie ls. ADDITIONAL FINDINGS: None. IMPRESSION: 1. The study is limited by motion. However, there have been interval evolutionary changes of the exte nsive infarcts involving the cerebral hemispheres, greater on the right from 07/15/2021 with developi ng encephalomalacia. There is no clear evidence of acute infarction. 2. There is continued ventriculomegaly and cerebral atrophy, also a detailed above without significan t interval change. Signer Name: Jose Ratliff MD Signed: 12/20/2021 4:45 PM Workstation Name: [id number]
--- NOTE | 2021-12-20 18:21 | Progress Note ---
Subjective Date of service: 12/20/21 Interval history: CONSULT DICTATED REPEAT EKG & TROPONIN. CHECK FOR PRIOR W/UP Objective Vital Signs Temp Pulse Resp BP BP Pulse Ox 12/20/21 12:09 98.3 F 93 H 100/70 95 12/20/21 08:34 22 96 12/20/21 07:36 98.2 F 74 106/58 99 12/20/21 06:06 98.2 F 93 H 18 99/47 130/77 94 12/20/21 04:50 95/66 12/20/21 04:40 104/67 12/20/21 04:20 124/72 12/20/21 04:10 130/68 12/20/21 04:00 123/72 12/20/21 03:58 98.4 F 90 19 155/80 99 12/20/21 03:50 135/67 12/20/21 03:30 131/70 12/20/21 03:20 135/75 12/20/21 03:00 135/53 12/20/21 02:50 158/77 70 L 12/20/21 02:30 146/75 12/20/21 02:20 132/62 12/20/21 02:00 135/59 97 12/20/21 01:48 100 H 135/74 12/20/21 01:45 135/74 95 12/20/21 01:41 96 12/19/21 23:09 98.2 F 60 20 190/110 99 - Labs and Meds Cardiac Enzymes 12/20/21 Range/Units 00:19 AST 24 (5-40) units/L Coagulation 12/20/21 Range/Units 00:19 PT 13.6 (12.2-14.9) Sec. INR 0.94 (0.87-1.13) APTT 37.1 H (24.2-36.6) Sec. Lipids 12/20/21 Range/Units 00:19 Triglycerides 53 (2-149) mg/dL Cholesterol 222 H (50-199) mg/dL HDL Cholesterol 72 H (40-59) mg/dL Cholesterol/HDL Ratio 3.08 % CBC 12/20/21 Range/Units 00:19 WBC 5.8 (4.5-11.0) K/mm3 RBC 4.98 (3.65-5.03) M/mm3 Hgb 11.8 (11.8-15.2) gm/dl Hct 37.3 (35.5-45.6) % Plt Count 171 (140-440) K/mm3 Lymph # (Auto) 1.5 (1.2-5.4) K/mm3 [place] # (Auto) 0.4 (0.0-0.8) K/mm3 Eos # (Auto) 0.2 (0.0-0.4) K/mm3 Baso # (Auto) 0.0 (0.0-0.1) K/mm3 Comprehensive Metabolic Panel 12/20/21 Range/Units 00:19 Sodium 139 (137-145) mmol/L Potassium 3.9 (3.6-5.0) mmol/L Chloride 101.4 (98-107) mmol/L Carbon Dioxide 25 (22-30) mmol/L BUN 24 H (9-20) mg/dL Creatinine 1.2 (0.8-1.3) mg/dL Glucose 89 (75-100) mg/dL Calcium 9.3 (8.4-10.2) mg/dL AST 24 (5-40) units/L ALT 24 (7-56) units/L Alkaline Phosphatase 67 (35-129) units/L Total Protein 6.7 (6.3-8.2) g/dL Albumin 3.8 L (3.9-5) g/dL
[2021-12-21 04:52] LABS: Basophils % (Auto) 0.9 % (0.0-1.8); Eosinophils # (Auto) 0.2 K/mm3 (0.0-0.4); Eosinophils % (Auto) 5.1 % (0.0-4.3); Hematocrit 34.7 % (35.5-45.6); Hemoglobin 11.2 gm/dl (11.8-15.2); Lymphocytes # (Auto) 1.5 K/mm3 (1.2-5.4); Lymphocytes % (Auto) 32.5 % (13.4-35.0); Mean Corpuscular HGB Conc 32 % (32-34); Mean Corpuscular Volume 76 fl (84-94); Monocytes # (Auto) 0.4 K/mm3 (0.0-0.8); Monocytes % (Auto) 7.9 % (0.0-7.3); Platelet Count 141 K/mm3 (140-440); Red Blood Count 4.58 M/mm3 (3.65-5.03); Red Cell Distribution Width 15.1 % (13.2-15.2)
[2021-12-21 05:13] LABS: BUN/Creatinine Ratio 23; Blood Urea Nitrogen 23 mg/dL (9-20); Calcium 8.9 mg/dL (8.4-10.2); Hemolysis Index 1
[2021-12-21] MEDS: cefTRIAXone/NS 1 GM/50 ML 1 GM/50 ML BAG IV SCH (06:03)
--- NOTE | 2021-12-21 09:22 | Progress Note ---
Assessment and Plan Assessment and Plan 71-year-old -[place] male with known history of hypertension, CVA with residual left-sided upper extremity weakness, contracture and history of cervical cord compression brought into the emergency room today for evaluation of confusion. There was a welfare check on patient today and patient was said to have been found at home confused and covered in feces lying down. Patient was admitted sometime in June 2021 and was supposed to be going for subacute rehab which he turned out. He lives by himself at home. He has home health. 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 Consult placed to cardiology for recommendations. # Hypertensive urgency -We will resume routine home medications and monitor vital signs closely. # DVT prophylaxis -Patient placed on subcutaneous heparin. # Full code status -Patient is full code. PLAN 1- Keppra 500 mg bid 2-Seizure precaution 3- Ativan prn for seizure 4- ASA 81 mg and Lipitor 40 mg 5- Maintain BP medications 6- Pt therapy will follow as needed Subjective Date of service: 12/21/21 Interval history: doing well ,disoriented to date or place,knows his birthday.follow commands, no ore confusion is noted MRI brain remarkable for remote right MCA infarct with encephalomalacia old EEG mild back ground slowing LDL#129 Objective - Vital Sign Vital Signs - 12hr 12/20/21 12/21/21 12/21/21 22:00 00:07 08:17 Temperature 98.2 F 98.2 F Pulse Rate 88 74 74 Respiratory 18 18 Rate Blood Pressure 137/74 Blood Pressure 130/76 [Right] O2 Sat by Pulse 99 90 Oximetry - General Apperance Constitutional: comfortable - EENT EENT: PERRL, mucous membranes moist - Respiratory Respiratory: lungs clear, rhonchi - Cardiovascular Cardiovascular: regular rate, normal S1, normal S2 Extremities: no peripheral edema bilat, no clubbing, cyanosis - Gastrointestinal Gastrointestinal: normoactive bowel sounds - Integumentary Integumentary: normal - Neurologic Cranial nerve examination: PERRL, EOMI, facial droop Speech examination: intact Detailed motor examination: other (left side contracture unchanged) - Laboratory Findings CBC and BMP: 12/21/21 04:31 12/21/21 04:31 Abnormal Lab Findings: Abnormal Labs 12/20/21 12/20/21 12/20/21 00:19 00:19 00:19 Hgb Hct MCV 75 L MCH 24 L [place] % (Auto) 7.4 H Eos % (Auto) APTT 37.1 H Chloride BUN 24 H POC Glucose Total Creatine Kinase 448 H Troponin T 0.045 H Albumin 3.8 L Cholesterol 222 H HDL Cholesterol 72 H Salicylates Acetaminophen 12/20/21 12/20/21 12/20/21 00:19 00:19 12:51 Hgb Hct MCV MCH [place] % (Auto) Eos % (Auto) APTT Chloride BUN POC Glucose 119 H Total Creatine Kinase Troponin T Albumin Cholesterol HDL Cholesterol Salicylates < 0.3 L Acetaminophen 5.0 L 12/20/21 12/21/21 12/21/21 20:21 04:31 04:31 Hgb 11.2 L Hct 34.7 L MCV 76 L MCH 25 L [place] % (Auto) 7.9 H Eos % (Auto) 5.1 H APTT Chloride 107.8 H BUN 23 H POC Glucose 126 H Total Creatine Kinase Troponin T Albumin Cholesterol HDL Cholesterol Salicylates Acetaminophen
[2021-12-21] MEDS: INSULIN LISPRO 100 UNIT/ML SUB-Q SCH ×4 (09:53→21:00)
[2021-12-21] MEDS: QUEtiapine 25 MG TAB PO SCH ×2 (09:54→21:03)
[2021-12-21] MEDS: ASPIRIN 81 MG TAB CHEW PO SCH (09:54)
[2021-12-21] MEDS: levETIRAcetam 500 MG TAB PO SCH ×2 (09:54→21:03)
--- NOTE | 2021-12-21 11:32 | Progress Note ---
Assessment and Plan 71-year-old -E[place]ian male with known history of hypertension, 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 Patient was admitted sometime in June 2021 and was supposed to be going for subacute rehab which he turned out. He lives by himself at home. He has home health. 12/21: Patient was confused this morning, ordered for Haldol IM as needed and initiated on Seroquel 25 mg twice daily. Patient also started on Keppra 500 twice daily. PT recommended subacute rehab, case resource manager consulted for [facility] ent. 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 Consult placed to cardiology for recommendations. -- Hypertensive urgency -We will resume routine home medications and monitor vital signs closely. -- Hx of CVA with left side weakness -possibly CP since 4 years old -left side myoclonus related to above -PT recommended subacute rehab -- Hx of spinal cord injury -he is with fecal and bladder incontinence -use Dipper -- DVT prophylaxis -Patient placed on subcutaneous heparin. --Full code status -Patient is full code. Subjective Date of service: 12/21/21 Interval history: Patient seen and examined. Medical records and medication list reviewed. No acute event overnight noted by the RN. Patient denies any chest pain or difficulty breathing. Patient is tolerating diet. Patient appears to be agitated today required intramuscular Haldol Discussed plan of care at bedside with patient's RN. Objective - Exam Narrative Exam: GENERAL: well-developed and well-nourished -[place]ian male lying on bed appeared to be in no discomfort. HEENT: Normocephalic. Atraumatic. No conjunctival congestion or icterus. Patient has moist mucous membranes. NECK: Supple. Trachea midline. CHEST/LUNGS: Clear to auscultated bilaterally, breathing nonlabored. No wheezes crackles or rhonchi. HEART/CARDIOVASCULAR: Regular in rate and rhythm. S1 and S2 positive. ABDOMEN: Abdomen is soft, nontender. Patient has normal bowel sounds. SKIN: There is no rash. Warm and dry. NEURO: Left upper extremity contracted paralysis. Follows command but appears confused. MUSCULOSKELETAL: No joint effusion or tenderness. EXTRIMITY: No edema, no cyanosis or clubbing. PSYCH: Cooperative. - Constitutional Vitals: Vital Signs - 12hr 12/21/21 12/21/21 00:07 08:17 Temperature 98.2 F 98.2 F Pulse Rate 74 74 Respiratory 18 18 Rate Blood Pressure 137/74 Blood Pressure 130/76 [Right] O2 Sat by Pulse 99 90 Oximetry - Labs CBC & Chem 7: 12/21/21 04:31 12/21/21 04:31 Labs: Abnormal lab results 12/20/21 12/20/21 12/21/21 Range/Units 12:51 20:21 04:31 Hgb 11.2 L (11.8-15.2) gm/dl Hct 34.7 L (35.5-45.6) % MCV 76 L (84-94) fl MCH 25 L (28-32) pg [place] % (Auto) 7.9 H (0.0-7.3) % Eos % (Auto) 5.1 H (0.0-4.3) % Chloride (98-107) mmol/L BUN (9-20) mg/dL POC Glucose 119 H 126 H (70-105) mg/dL 12/21/21 12/21/21 Range/Units 04:31 11:07 Hgb (11.8-15.2) gm/dl Hct (35.5-45.6) % MCV (84-94) fl MCH (28-32) pg [place] % (Auto) (0.0-7.3) % Eos % (Auto) (0.0-4.3) % Chloride 107.8 H (98-107) mmol/L BUN 23 H (9-20) mg/dL POC Glucose 125 H (70-105) mg/dL HEART Score - HEART Score Troponin: Troponin T 0.045 ng/mL (0.00-0.029) H 12/20/21 00:19
[2021-12-21] MEDS: HALOPERIDOL LACTATE 5 MG/1 ML INJ IM PRN (12:55)
[2021-12-21] MEDS ORDERED: hydrALAZINE 20 MG/1 ML INJ IV ONE (18:30)
[2021-12-21] MEDS ORDERED: hydrALAZINE 20 MG/1 ML INJ IV PRN (19:44)
--- NOTE | 2021-12-22 02:26 | Consultation ---
DATE OF CONSULTATION: 12/20/2021 HISTORY OF PRESENT ILLNESS: The patient is a 71-year-old male who is demented and unable to give a good history. He has no complaints at this time. There is a history of hypertension, stroke, rhabdomyolysis and cervical cord compression. He was in this hospital in 06/2021. He was found at home covered with feces with hypertensive urgency. No cardiovascular symptoms were described, but his troponin was noted to be elevated. His regular doctor is unknown. Apparently, according to one note, he was more confused than usual. He denies any infectious symptoms or cardiac symptoms. It is unclear if he is compliant with medications. His previous cardiac workup is unknown. ALLERGIES: None. MEDICATIONS: See the nurse's list. SOCIAL HISTORY: Smoking, none described. Alcohol use, no heavy use described. FAMILY HISTORY: Not available. OPERATIONS: None listed. REVIEW OF SYSTEMS: There is a history of diabetes. He has left-sided weakness with a contracted left arm. There is no GI or pulmonary disorders described. There is no skin or arthritic disorders described. There is no disorders. There is no psychiatric disorders described. PHYSICAL EXAMINATION: GENERAL: Well-developed, well-nourished, no acute distress. Alert, cooperative, but disoriented. EYES, NOSE, AND THROAT: Unremarkable. NECK: Reveals JVD. There are no bruits. Neck is supple, no masses. LUNGS: Clear. No labored respirations. HEART: Regular rhythm, soft S4, no murmurs or rubs. ABDOMEN: Soft, nontender, no masses. EXTREMITIES: No cyanosis, clubbing, edema. Peripheral pulses at the ankles are diminished, but intact. NEUROLOGIC: Deferred. SKIN: Clear. LABORATORY DATA: EKG is abnormal with LVH and T-wave inversions. IMPRESSION: 1. With positive troponin and abnormal electrocardiogram, we will evaluate for the possibility of coronary disease. The EKG and troponins will be repeated. An echocardiogram will be performed. A stress test can be considered next week. 2. Hypertensive urgency, improved. 3. Hyperlipidemia. 4. History of cerebrovascular accident with dementia. 5. Diabetes. 6. History of rhabdomyolysis. PLAN: Conservative therapy at this time with repeat cardiac studies. Check for previous workup as well. Thank you for this consultation. We will follow the patient. TID: [id number] RECEIPT: [id number] YASEMIN/DALTON
[2021-12-22] MEDS: cefTRIAXone/NS 1 GM/50 ML 1 GM/50 ML BAG IV SCH (05:10)
[2021-12-22] MEDS: INSULIN LISPRO 100 UNIT/ML SUB-Q SCH ×4 (09:24→21:45)
[2021-12-22] MEDS: ASPIRIN 81 MG TAB CHEW PO SCH (09:25)
[2021-12-22] MEDS: QUEtiapine 25 MG TAB PO SCH ×2 (09:25→21:49)
[2021-12-22] MEDS: levETIRAcetam 500 MG TAB PO SCH ×2 (09:25→21:49)
--- NOTE | 2021-12-22 09:58 | Progress Note ---
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 There was a welfare check on patient today and patient was said to have been found at home confused and covered in feces lying down. Patient was admitted sometime in June 2021 and was supposed to be going for subacute rehab which he turned out. He lives by himself at home. He has home health. 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 Consult placed to cardiology for recommendations. # Hypertensive urgency -We will resume routine home medications and monitor vital signs closely. # DVT prophylaxis -Patient placed on subcutaneous heparin. # Full code status -Patient is full code. PLAN 1- Keppra 500 mg bid 2-Seizure precaution 3- Ativan prn for seizure 4- ASA 81 mg and Lipitor 40 mg 5- Maintain BP medications 6- Pt therapy 7- Neurology follow up in 2-3 months will sign off Subjective Date of service: 12/22/21 Interval history: doing well ,disoriented to date or place,knows his birthday.follow commands, no ore confusion is noted MRI brain remarkable for remote right MCA infarct with encephalomalacia old EEG mild back ground slowing LDL#129 Objective - Vital Sign Vital Signs - 12hr 12/21/21 22:00 Pulse Rate 0 L Respiratory 18 Rate O2 Sat by Pulse 97 Oximetry - General Apperance Constitutional: comfortable - EENT EENT: PERRL, mucous membranes moist - Respiratory Respiratory: lungs clear, rhonchi - Cardiovascular Cardiovascular: regular rate, normal S1, normal S2 Extremities: no peripheral edema bilat, no clubbing, cyanosis - Gastrointestinal Gastrointestinal: normoactive bowel sounds - Neurologic Cranial nerve examination: PERRL, EOMI, facial droop Speech examination: intact Detailed motor examination: other (left side 3/5 with contracture,brisk reflexes L>R ) - Laboratory Findings CBC and BMP: 12/21/21 04:31 12/21/21 04:31 Abnormal Lab Findings: Abnormal Labs 12/20/21 12/20/21 12/20/21 00:19 00:19 00:19 Hgb Hct MCV 75 L MCH 24 L [place] % (Auto) 7.4 H Eos % (Auto) APTT 37.1 H Chloride BUN 24 H POC Glucose Total Creatine Kinase 448 H Troponin T 0.045 H Albumin 3.8 L Cholesterol 222 H HDL Cholesterol 72 H Salicylates Acetaminophen 12/20/21 12/20/21 12/20/21 00:19 00:19 12:51 Hgb Hct MCV MCH [place] % (Auto) Eos % (Auto) APTT Chloride BUN POC Glucose 119 H Total Creatine Kinase Troponin T Albumin Cholesterol HDL Cholesterol Salicylates < 0.3 L Acetaminophen 5.0 L 12/20/21 12/21/21 12/21/21 20:21 04:31 04:31 Hgb 11.2 L Hct 34.7 L MCV 76 L MCH 25 L [place] % (Auto) 7.9 H Eos % (Auto) 5.1 H APTT Chloride 107.8 H BUN 23 H POC Glucose 126 H Total Creatine Kinase Troponin T Albumin Cholesterol HDL Cholesterol Salicylates Acetaminophen 12/21/21 12/21/21 11:07 20:57 Hgb Hct MCV MCH [place] % (Auto) Eos % (Auto) APTT Chloride BUN POC Glucose 125 H 106 H Total Creatine Kinase Troponin T Albumin Cholesterol HDL Cholesterol Salicylates Acetaminophen
--- NOTE | 2021-12-22 12:52 | Progress Note ---
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 Patient was admitted sometime in June 2021 and was supposed to be going for subacute rehab which he turned out. He lives by himself at home. He has home health. 12/21: Patient was confused this morning, ordered for Haldol IM as needed and initiated on Seroquel 25 mg twice daily. Patient also started on Keppra 500 twice daily. PT recommended subacute rehab, medical case worker consulted for [facility]. 12/22: Patient appears more calm and cooperative today. Pending subacute rehab placement. Continue to follow clinically, pending cardiology eval and 2D echo report. 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 Consult placed to cardiology for recommendations. -- Hypertensive urgency -We will resume routine home medications and monitor vital signs closely. -- Hx of CVA with left side weakness -possibly CP since 4 years old -left side myoclonus related to above -PT recommended subacute rehab -- Hx of spinal cord injury -he is with fecal and bladder incontinence -use Dipper -- DVT prophylaxis -Patient placed on subcutaneous heparin. --Full code status -Patient is full code. Subjective Date of service: 12/22/21 Interval history: Patient seen and examined. Medical records and medication list reviewed. No acute event overnight noted by the RN. Patient denies any chest pain or difficulty breathing. Patient is tolerating d iet. Discussed plan of care at bedside with patient's RN. Objective - Exam Narrative Exam: GENERAL: well-developed and well-nourished -[place] male lying on bed appeared to be in no discomfort. HEENT: Normocephalic. Atraumatic. No conjunctival congestion or icterus. Patient has moist mucous membranes. NECK: Supple. Trachea midline. CHEST/LUNGS: Clear to auscultated bilaterally, breathing nonlabored. No wheezes crackles or rhonchi. HEART/CARDIOVASCULAR: Regular in rate and rhythm. S1 and S2 positive. ABDOMEN: Abdomen is soft, nontender. Patient has normal bowel sounds. SKIN: There is no rash. Warm and dry. NEURO: Left upper extremity contracted paralysis. Follows command but appears confused. MUSCULOSKELETAL: No joint effusion or tenderness. EXTRIMITY: No edema, no cyanosis or clubbing. PSYCH: Cooperative. - Constitutional Vitals: Vital Signs - 12hr 12/22/21 12/22/21 10:00 10:55 Temperature 98 F Pulse Rate 71 Respiratory 18 18 Rate Blood Pressure 103/67 [Right] O2 Sat by Pulse 96 94 Oximetry - Labs CBC & Chem 7: 12/21/21 04:31 12/21/21 04:31 Labs: Abnormal lab results 12/21/21 12/22/21 Range/Units 20:57 11:41 POC Glucose 106 H 124 H (70-105) mg/dL HEART Score - HEART Score Troponin: Troponin T 0.045 ng/mL (0.00-0.029) H 12/20/21 00:19
[2021-12-23] MEDS: cefTRIAXone/NS 1 GM/50 ML 1 GM/50 ML BAG IV SCH (11:46)
[2021-12-23] MEDS: levETIRAcetam 500 MG TAB PO SCH ×2 (11:52→21:45)
[2021-12-23] MEDS: QUEtiapine 25 MG TAB PO SCH ×2 (11:52→21:45)
[2021-12-23] MEDS: ASPIRIN 81 MG TAB CHEW PO SCH (11:52)
[2021-12-23] MEDS: INSULIN LISPRO 100 UNIT/ML SUB-Q SCH ×4 (11:54→21:46)
--- NOTE | 2021-12-23 12:43 | Progress Note ---
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 Patient was admitted sometime in June 2021 and was supposed to be going for subacute rehab which he turned out. He lives by himself at home. He has home health. 12/21: Patient was confused this morning, ordered for Haldol IM as needed and initiated on Seroquel 25 mg twice daily. Patient also started on Keppra 500 twice daily. PT recommended subacute rehab, case assembler consulted for [facility]. 12/22: Patient appears more calm and cooperative today. Pending subacute rehab placement. Continue to follow clinically, pending cardiology eval and 2D echo report. 12/23: Plan for stress test tomorrow per cardiology recommendation. Pending subacute rehab placement. Continue to follow clinically. 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 Consult placed to cardiology for recommendations. -- Hypertensive urgency -We will resume routine home medications and monitor vital signs closely. -- Hx of CVA with left side weakness -possibly CP since 4 years old -left side myoclonus related to above -PT recommended subacute rehab -- Hx of spinal cord injury -he is with fecal and bladder incontinence -use Dipper -- DVT prophylaxis -Patient placed on subcutaneous heparin. --Full code status -Patient is full code. Subjective Date of service: 12/23/21 Interval history: Patient seen and examined. Medical records and medication list reviewed. No acute event overnight noted by the RN. Patient denies any chest pain or difficulty breathing. Patient is tolerating diet. Discussed plan of care at bedside with patient's RN. Objective - Exam Narrative Exam: GENERAL: well-developed and well-nourished -Vietnamese male lying on bed appeared to be in no discomfort. HEENT: Normocephalic. Atraumatic. No conjunctival congestion or icterus. Patient has moist mucous membranes. NECK: Supple. Trachea midline. CHEST/LUNGS: Clear to auscultated bilaterally, breathing nonlabored. No wheezes crackles or rhonchi. HEART/CARDIOVASCULAR: Regular in rate and rhythm. S1 and S2 positive. ABDOMEN: Abdomen is soft, nontender. Patient has normal bowel sounds. SKIN: There is no rash. Warm and dry. NEURO: Left upper extremity contracted paralysis. Follows command but appears confused. MUSCULOSKELETAL: No joint effusion or tenderness. EXTRIMITY: No edema, no cyanosis or clubbing. PSYCH: Cooperative. - Constitutional Vitals: Vital Signs - 12hr 12/23/21 12/23/21 12/23/21 05:16 07:31 07:42 Temperature 98.4 F 98.2 F Pulse Rate 83 78 Respiratory 18 Rate Blood Pressure 125/80 125/82 O2 Sat by Pulse 97 96 95 Oximetry - Labs CBC & Chem 7: 12/21/21 04:31 12/21/21 04:31 Labs: Abnormal lab results 12/22/21 12/22/21 12/23/21 Range/Units 15:59 19:26 00:10 POC Glucose 112 H (70-105) mg/dL Troponin T 0.045 H 0.043 H (0.00-0.029) ng/mL 12/23/21 Range/Units 07:26 POC Glucose (70-105) mg/dL Troponin T 0.038 H (0.00-0.029) ng/mL HEART Score - HEART Score Troponin: Troponin T 0.038 ng/mL (0.00-0.029) H 12/23/21 07:26
[2021-12-24] MEDS: HALOPERIDOL LACTATE 5 MG/1 ML INJ IM PRN (01:55)
[2021-12-24 05:41] LABS: BUN/Creatinine Ratio 27; Blood Urea Nitrogen 32 mg/dL (9-20); Hemolysis Index 0
[2021-12-24] MEDS: cefTRIAXone/NS 1 GM/50 ML 1 GM/50 ML BAG IV SCH (05:44)
[2021-12-24] MEDS ORDERED: REGADENOSON 0.4 MG/5 ML INJ IV ONE (07:27)
[2021-12-24] MEDS: INSULIN LISPRO 100 UNIT/ML SUB-Q SCH ×4 (08:00→22:57)
--- NOTE | 2021-12-24 09:59 | Progress Note ---
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 Patient was admitted sometime in June 2021 and was supposed to be going for subacute rehab which he turned out. He lives by himself at home. He has home health. 12/21: Patient was confused this morning, ordered for Haldol IM as needed and initiated on Seroquel 25 mg twice daily. Patient also started on Keppra 500 twice daily. PT recommended subacute rehab, adult protective caseworker consulted for placement. 12/22: Patient appears more calm and cooperative today. Pending subacute rehab placement. Continue to follow clinically, pending cardiology eval and 2D echo report. 12/23: Plan for stress test tomorrow per cardiology recommendation. Pending subacute rehab placement. Continue to follow clinically. 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 Cardiology evaluated the patient Stress test negative for ischemia LVEF 20 to 25% -- Hypertensive urgency -We will resume routine home medications and monitor vital signs closely. -- Hx of CVA with left side weakness -possibly CP since 4 years old -left side myoclonus related to above -PT recommended subacute rehab -- Hx of spinal cord injury -he is with fecal and bladder incontinence -use Dipper -- DVT prophylaxis -Patient placed on subcutaneous heparin. --Full code status -Patient is full code. History Interval history: I have seen and examined the patient at the bedside Patient's chart and medications reviewed Patient underwent stress test today, negative for ischemia Echocardiogram EF 20 to 25% Patient feels slightly better Vital signs noted Hospitalist Physical - Constitutional Vitals: Temp Pulse Resp BP Pulse Ox 98.0 F 78 18 148/79 95 12/24/21 07:56 12/24/21 07:56 12/24/21 07:56 12/24/21 07:56 12/24/21 07:56 General appearance: Present: no acute distress, well-nourished - EENT Eyes: Present: PERRL, EOM intact - Neck Neck: Present: supple, normal ROM - Respiratory Respiratory effort: normal Respiratory: bilateral: diminished, negative: rales, rhonchi, wheezing - Cardiovascular Rhythm: regular Heart Sounds: Present: S1 & S2 - Extremities Extremities: no ischemia, No edema - Abdominal General gastrointestinal: soft, non-tender, non-distended, normal bowel sounds - Integumentary Integumentary: Present: clear, warm - Psychiatric Psychiatric: appropriate mood/affect, cooperative - Neurologic Neurologic: moves all extremities (Residual weakness) HEART Score - HEART Score Troponin: Troponin T 0.036 ng/mL (0.00-0.029) H 12/23/21 14:19 Results - Labs CBC & Chem 7: 12/21/21 04:31 12/24/21 04:25 Labs: Laboratory Last Values WBC 4.7 K/mm3 (4.5-11.0) 12/21/21 04:31 RBC 4.58 M/mm3 (3.65-5.03) 12/21/21 04:31 Hgb 11.2 gm/dl (11.8-15.2) L 12/21/21 04:31 Hct 34.7 % (35.5-45.6) L 12/21/21 04:31 MCV 76 fl (84-94) L 12/21/21 04:31 MCH 25 pg (28-32) L 12/21/21 04:31 MCHC 32 % (32-34) 12/21/21 04:31 RDW 15.1 % (13.2-15.2) 12/21/21 04:31 Plt Count 141 K/mm3 (140-440) 12/21/21 04:31 Lymph % (Auto) 32.5 % (13.4-35.0) 12/21/21 04:31 [place] % (Auto) 7.9 % (0.0-7.3) H 12/21/21 04:31 Eos % (Auto) 5.1 % (0.0-4.3) H 12/21/21 04:31 Baso % (Auto) 0.9 % (0.0-1.8) 12/21/21 04:31 Lymph # (Auto) 1.5 K/mm3 (1.2-5.4) 12/21/21 04:31 [place] # (Auto) 0.4 K/mm3 (0.0-0.8) 12/21/21 04:31 Eos # (Auto) 0.2 K/mm3 (0.0-0.4) 12/21/21 04:31 Baso # (Auto) 0.0 K/mm3 (0.0-0.1) 12/21/21 04:31 Seg Neutrophils % 53.6 % (40.0-70.0) 12/21/21 04:31 Seg Neutrophils # 2.5 K/mm3 (1.8-7.7) 12/21/21 04:31 PT 13.6 Sec. (12.2-14.9) 12/20/21 00:19 INR 0.94 (0.87-1.13) 12/20/21 00:19 APTT 37.1 Sec. (24.2-36.6) H 12/20/21 00:19 Sodium 140 mmol/L (137-145) 12/24/21 04:25 Potassium 4.0 mmol/L (3.6-5.0) 12/24/21 04:25 Chloride 105.6 mmol/L (98-107) 12/24/21 04:25 Carbon Dioxide 22 mmol/L (22-30) 12/24/21 04:25 Anion Gap 16 mmol/L 12/24/21 04:25 BUN 32 mg/dL (9-20) H 12/24/21 04:25 Creatinine 1.2 mg/dL (0.8-1.3) 12/24/21 04:25 Estimated GFR > 60 ml/min 12/24/21 04:25 BUN/Creatinine Ratio 27 % 12/24/21 04:25 Glucose 87 mg/dL (75-100) 12/24/21 04:25 POC Glucose 91 mg/dL (70-105) 12/24/21 07:40 Lactic Acid 1.10 mmol/L (0.7-2.0) 12/20/21 00:19 Calcium 9.0 mg/dL (8.4-10.2) 12/24/21 04:25 Total Bilirubin 0.20 mg/dL (0.1-1.2) 12/20/21 00:19 AST 24 units/L (5-40) 12/20/21 00:19 ALT 24 units/L (7-56) 12/20/21 00:19 Alkaline Phosphatase 67 units/L (35-129) 12/20/21 00:19 Ammonia 27.0 umol/L (25-60) 12/20/21 00:19 Total Creatine Kinase 448 units/L (55-170) H 12/20/21 00:19 Troponin T 0.036 ng/mL (0.00-0.029) H 12/23/21 14:19 Total Protein 6.7 g/dL (6.3-8.2) 12/20/21 00:19 Albumin 3.8 g/dL (3.9-5) L 12/20/21 00:19 Albumin/Globulin Ratio 1.3 % 12/20/21 00:19 Triglycerides 53 mg/dL (2-149) 12/20/21 00:19 Cholesterol 222 mg/dL (50-199) H 12/20/21 00:19 LDL Cholesterol Direct 129 mg/dL (50-130) 12/20/21 00:19 HDL Cholesterol 72 mg/dL (40-59) H 12/20/21 00:19 Cholesterol/HDL Ratio 3.08 % 12/20/21 00:19 TSH 2.820 mlU/mL (0.270-4.200) 12/20/21 00:19 Urine Color Yellow (Yellow) 12/20/21 Unknown Urine Turbidity Slightly-cloudy (Clear) 12/20/21 Unknown Urine pH 6.0 (5.0-7.0) 12/20/21 Unknown Ur Specific [place] 1.016 (1.003-1.030) 12/20/21 Unknown Urine Protein <15 mg/dl mg/dL (Negative) 12/20/21 Unknown Urine Glucose (UA) Neg mg/dL (Negative) 12/20/21 Unknown Urine Ketones Neg mg/dL (Negative) 12/20/21 Unknown Urine Blood Sm (Negative) 12/20/21 Unknown Urine Nitrite Neg (Negative) 12/20/21 Unknown Urine Bilirubin Neg (Negative) 12/20/21 Unknown Urine Urobilinogen 2.0 mg/dL (<2.0) 12/20/21 Unknown Ur Leukocyte Esterase Lg (Negative) 12/20/21 Unknown Urine WBC (Auto) < 1.0 /HPF (0.0-6.0) 12/20/21 Unknown Urine RBC (Auto) < 1.0 /HPF (0.0-6.0) 12/20/21 Unknown Salicylates < 0.3 mg/dL (2.8-20.0) L 12/20/21 00:19 Acetaminophen 5.0 ug/mL (10.0-30.0) L 12/20/21 00:19 Plasma/Serum Alcohol < 0.01 % (0-0.07) 12/20/21 00:19 [place]/IV: Voiding Method Indwelling Catheter Active Medications - Current Medications Current Medications: Generic Name Dose Route Start Last Admin Trade Name Freq PRN Reason Stop Dose Admin Acetaminophen 650 mg 12/20/21 02:46 Acetaminophen 325 Mg Tab PO Q4H PRN Pain MILD(1-3)/Fever >100.5/BROWN Aspirin 81 mg 12/21/21 10:00 12/23/21 11:52 Aspirin 81 Mg Tab Chew PO 81 mg QDAY KRISTINA Administration Atorvastatin Calcium 40 mg 12/20/21 22:00 12/23/21 21:45 Atorvastatin 40 Mg Tab PO 40 mg QHS KRISTINA Administration Dextrose 0 ml 12/20/21 02:46 Dextrose 50% In Water (25gm) 50 Ml Syringe IV Q30MIN PRN Hypoglycemia Protocol Haloperidol Lactate 5 mg 12/21/21 09:04 12/24/21 01:55 Haloperidol Lactate 5 Mg/1 Ml Inj IM 5 mg Q6H PRN Administration Agitation Hydralazine HCl 5 mg 12/21/21 19:44 12/21/21 21:01 Hydralazine 20 Mg/1 Ml Inj IV 5 mg Q30MIN PRN Administration Hypertension Ceftriaxone Sodium 1 gm in 50 mls @ 100 mls/hr 12/20/21 06:00 12/24/21 05:44 Rocephin/Ns 1 Gm/50 Ml IV 12/26/21 06:29 100 mls/hr Q24H KRISTINA Administration Protocol Insulin Human Lispro 0 unit 12/20/21 07:30 12/23/21 21:46 Insulin Lispro 100 Unit/Ml SUB-Q Not Given ACHS [facility] Protocol Levetiracetam 500 mg 12/20/21 14:00 12/23/21 21:45 Levetiracetam 500 Mg Tab PO 500 mg BID KRISTINA Administration Magnesium Hydroxide 30 ml 12/20/21 02:46 Magnesium Hydroxide (Mom) Oral Liqd Udc PO Q4H PRN Constipation Morphine Sulfate 2 mg 12/20/21 02:46 12/20/21 07:33 Morphine 2 Mg/1 Ml Inj IV 2 mg Q4H PRN Administration Pain, Moderate (4-6) Morphine Sulfate 4 mg 12/20/21 02:46 Morphine 4 Mg/1 Ml Inj IV Q4H PRN Pain , Severe (7-10) Ondansetron HCl 4 mg 12/20/21 02:46 Ondansetron 4 Mg/2 Ml Inj IV Q8H PRN Nausea And Vomiting Quetiapine Fumarate 25 mg 12/21/21 10:00 12/23/21 21:45 Quetiapine 25 Mg Tab PO 25 mg BID KRISTINA Administration Sodium Chloride 10 ml 12/20/21 10:00 12/23/21 21:45 Sodium Chloride 0.9% 10 Ml Flush Syringe IV 10 ml BID KRISTINA Administration Sodium Chloride 10 ml 12/20/21 02:46 Sodium Chloride 0.9% 10 Ml Flush Syringe IV PRN PRN LINE FLUSH Nutrition/Malnutrition Assess - Dietary Evaluation Nutrition/Malnutrition Findings: Nutrition Notes Start: 12/20/21 12:33 Freq: Status: Active Protocol: Document 12/20/21 12:33 QUANG (Rec: 12/20/21 12:41 QUANG [email or web address]) Nutrition Notes Need for Assessment generated from: MD Order,Education Initial or Follow up Brief Note Current Diagnosis Diabetes,Hypertension,Stroke Other Pertinent Diagnosis Elevated Troponin, Confusion. Current Diet Cardiac/Consistent Carbohydrates Diet (since B ). 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 Weight Status Appropriate Subjective/Other Information RD consult for nutrition education assessment. No reports available on Pt's PO intake of meals at the time , will assess at F/U. Pt is on Room Air, O2 saturation @ 96%, according to Physical Assessment History notes. Pt still in critical condition , not a candidate for Nutrition Education at the time, will assess feasibility on F/U. Percent of energy/protein needs met: Prescribed Cardiac/Consistent Carbohydrates Diet provides for energy/protein needs (1, 977 Kcal/86 g) during LOS. Nutrition Intervention Follow-Up By: 12/27/21 Additional Comments Nutrition education will be provided on F/U, if feasible. Continue monitoring food tolerance, %PO intake of meals , and BM.
--- NOTE | 2021-12-24 12:38 | Nuclear Medicine Report ---
APPROVED REPORT Exam: Nuclear Stress Test Indication: Chest pain Patient Location: [address] [place] [address] Room #: A471 Ht: 6 ft 0 in Wt: 190 lbs BSA: 2.08 m2 HR: 70 bpmBP: 159/94 mmHgBMI: 25.76 Rhythm: Sinus Rhythm Stress Test Details Stress Test: Pharmacologic stress testing performed using 0.4 mg of regadenoson per 5 mL given IV over 10 seconds. HR Resting HR: 61 bpm Max HR Achieved: 122 bpm Max Heart Rate (APMHR): 151.774376 bpm Target HR (85% APMHR): 128.272772 bpm % of APMHR: 80.79 Recovery HR: 90 bpm HR response to stress: Normal HR response to stress BP Resting BP: 110/70 mmHg Max BP: 159/94 mmHg Recovery BP: 127/74 mmHg BP response to stress: Normal blood pressure response to stress. ECG Resting ECG: Sinus Rhythm Stress ECG: Sinus Tachycardia Arrhythmia: None Recovery ECG: Sinus Rhythm Recovery Arrhythmia: None Clinical Reason for Termination: Completed protocol Stress Symptoms: None NM EXAM: Myocardial Perfusion REST/STRESS Imaging Protocol: Rest Tc-99m/Stress Tc-99m 1 day Resting Data Rest SPECT myocardial perfusion imaging was performed in supine position 45 minutes following the intravenous injection of 10 mCi of Tc-99m Myoview. Time of rest injection: 0710 Date: 12/24/2021 Pharmacologic Stress Pharmacologic stress test was performed by injecting Regadenoson 0.4 mg IV push followed by the intravenous injection of 28 mCi of Tc-99m Myoview. Time of stress injection: 11:17:46 Date: 12/24/2021 Gated Stress SPECT was performed 30 minutes after stress injection. The images were gated to evaluate regional wall motion and calculate left ventricular ejection fraction. Study Data TID = 0.85. Perfusion Nuclear Conclusion ECG Findings: negative for ischemia Clinical Findings: negative for ischemia Nuclear Findings: negative for ischemia Left Ventricular Function: abnormal Risk Study: low Normal study. No scintigraphic evidence for myocardial ischemia or scar. Decreased left ventricular systolic function.
[2021-12-24] MEDS: ASPIRIN 81 MG TAB CHEW PO SCH (15:54)
[2021-12-24] MEDS: levETIRAcetam 500 MG TAB PO SCH ×2 (15:54→21:55)
[2021-12-24] MEDS: QUEtiapine 25 MG TAB PO SCH ×2 (15:55→21:55)
[2021-12-25] MEDS: cefTRIAXone/NS 1 GM/50 ML 1 GM/50 ML BAG IV SCH (05:58)
[2021-12-25] MEDS: INSULIN LISPRO 100 UNIT/ML SUB-Q SCH ×4 (08:04→21:40)
--- NOTE | 2021-12-25 08:11 | Progress Note ---
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 Patient was admitted sometime in June 2021 and was supposed to be going for subacute rehab which he turned out. He lives by himself at home. He has home health. 12/21: Patient was confused this morning, ordered for Haldol IM as needed and initiated on Seroquel 25 mg twice daily. Patient also started on Keppra 500 twice daily. PT recommended subacute rehab, nurse case management consulted for placement. 12/22: Patient appears more calm and cooperative today. Pending subacute rehab placement. Continue to follow clinically, pending cardiology eval and 2D echo report. 12/23: Plan for stress test tomorrow per cardiology recommendation. Pending subacute rehab placement. 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 Cardiology evaluated the patient Stress test negative for ischemia LVEF 20 to 25% --Acute systolic congestive heart failure; EF 20 to 25% Stress test negative for ischemia, nonischemic cardiomyopathy Added diuretics, beta-blockers, CARLO inhibitors, input output monitoring Fluid restriction, low-sodium diet, cardiology following -- Hypertensive urgency -We will resume routine home medications and monitor vital signs closely. -- Hx of CVA with left side weakness -possibly CP since 4 years old -left side myoclonus related to above -PT recommended subacute rehab -- Hx of spinal cord injury -he is with fecal and bladder incontinence -use Dipper -- DVT prophylaxis -Patient placed on subcutaneous heparin. --Full code status -Patient is full code. Patient is medically stable for discharge Awaiting placement subacute versus SNF Discharge planning per case management History Interval history: I have seen and examined the patient at the bedside Patient's chart and medications reviewed Patient is minimally communicative confused Vital signs noted Hospitalist Physical - Constitutional Vitals: Temp Pulse Resp BP Pulse Ox 97.8 F 89 20 145/89 99 12/25/21 04:50 12/25/21 04:50 12/25/21 04:50 12/25/21 04:50 12/25/21 04:50 General appearance: Present: no acute distress, well-nourished - EENT Eyes: Present: PERRL, EOM intact - Neck Neck: Present: supple, normal ROM - Respiratory Respiratory effort: normal Respiratory: bilateral: diminished, negative: rales, rhonchi, wheezing - Cardiovascular Rhythm: regular Heart Sounds: Present: S1 & S2 - Extremities Extremities: no ischemia, No edema - Abdominal General gastrointestinal: soft, non-tender, non-distended, normal bowel sounds - Integumentary Integumentary: Present: clear, warm HEART Score - HEART Score Troponin: Troponin T 0.036 ng/mL (0.00-0.029) H 12/23/21 14:19 Results - Labs CBC & Chem 7: 12/21/21 04:31 12/24/21 04:25 Labs: Laboratory Last Values WBC 4.7 K/mm3 (4.5-11.0) 12/21/21 04:31 RBC 4.58 M/mm3 (3.65-5.03) 12/21/21 04:31 Hgb 11.2 gm/dl (11.8-15.2) L 12/21/21 04:31 Hct 34.7 % (35.5-45.6) L 12/21/21 04:31 MCV 76 fl (84-94) L 12/21/21 04:31 MCH 25 pg (28-32) L 12/21/21 04:31 MCHC 32 % (32-34) 12/21/21 04:31 RDW 15.1 % (13.2-15.2) 12/21/21 04:31 Plt Count 141 K/mm3 (140-440) 12/21/21 04:31 Lymph % (Auto) 32.5 % (13.4-35.0) 12/21/21 04:31 [place] % (Auto) 7.9 % (0.0-7.3) H 12/21/21 04:31 Eos % (Auto) 5.1 % (0.0-4.3) H 12/21/21 04:31 Baso % (Auto) 0.9 % (0.0-1.8) 12/21/21 04:31 Lymph # (Auto) 1.5 K/mm3 (1.2-5.4) 12/21/21 04:31 [place] # (Auto) 0.4 K/mm3 (0.0-0.8) 12/21/21 04:31 Eos # (Auto) 0.2 K/mm3 (0.0-0.4) 12/21/21 04:31 Baso # (Auto) 0.0 K/mm3 (0.0-0.1) 12/21/21 04:31 Seg Neutrophils % 53.6 % (40.0-70.0) 12/21/21 04:31 Seg Neutrophils # 2.5 K/mm3 (1.8-7.7) 12/21/21 04:31 PT 13.6 Sec. (12.2-14.9) 12/20/21 00:19 INR 0.94 (0.87-1.13) 12/20/21 00:19 APTT 37.1 Sec. (24.2-36.6) H 12/20/21 00:19 Sodium 140 mmol/L (137-145) 12/24/21 04:25 Potassium 4.0 mmol/L (3.6-5.0) 12/24/21 04:25 Chloride 105.6 mmol/L (98-107) 12/24/21 04:25 Carbon Dioxide 22 mmol/L (22-30) 12/24/21 04:25 Anion Gap 16 mmol/L 12/24/21 04:25 BUN 32 mg/dL (9-20) H 12/24/21 04:25 Creatinine 1.2 mg/dL (0.8-1.3) 12/24/21 04:25 Estimated GFR > 60 ml/min 12/24/21 04:25 BUN/Creatinine Ratio 27 % 12/24/21 04:25 Glucose 87 mg/dL (75-100) 12/24/21 04:25 POC Glucose 91 mg/dL (70-105) 12/25/21 07:04 Lactic Acid 1.10 mmol/L (0.7-2.0) 12/20/21 00:19 Calcium 9.0 mg/dL (8.4-10.2) 12/24/21 04:25 Total Bilirubin 0.20 mg/dL (0.1-1.2) 12/20/21 00:19 AST 24 units/L (5-40) 12/20/21 00:19 ALT 24 units/L (7-56) 12/20/21 00:19 Alkaline Phosphatase 67 units/L (35-129) 12/20/21 00:19 Ammonia 27.0 umol/L (25-60) 12/20/21 00:19 Total Creatine Kinase 448 units/L (55-170) H 12/20/21 00:19 Troponin T 0.036 ng/mL (0.00-0.029) H 12/23/21 14:19 Total Protein 6.7 g/dL (6.3-8.2) 12/20/21 00:19 Albumin 3.8 g/dL (3.9-5) L 12/20/21 00:19 Albumin/Globulin Ratio 1.3 % 12/20/21 00:19 Triglycerides 53 mg/dL (2-149) 12/20/21 00:19 Cholesterol 222 mg/dL (50-199) H 12/20/21 00:19 LDL Cholesterol Direct 129 mg/dL (50-130) 12/20/21 00:19 HDL Cholesterol 72 mg/dL (40-59) H 12/20/21 00:19 Cholesterol/HDL Ratio 3.08 % 12/20/21 00:19 TSH 2.820 mlU/mL (0.270-4.200) 12/20/21 00:19 Urine Color Yellow (Yellow) 12/20/21 Unknown Urine Turbidity Slightly-cloudy (Clear) 12/20/21 Unknown Urine pH 6.0 (5.0-7.0) 12/20/21 Unknown Ur Specific [place] 1.016 (1.003-1.030) 12/20/21 Unknown Urine Protein <15 mg/dl mg/dL (Negative) 12/20/21 Unknown Urine Glucose (UA) Neg mg/dL (Negative) 12/20/21 Unknown Urine Ketones Neg mg/dL (Negative) 12/20/21 Unknown Urine Blood Sm (Negative) 12/20/21 Unknown Urine Nitrite Neg (Negative) 12/20/21 Unknown Urine Bilirubin Neg (Negative) 12/20/21 Unknown Urine Urobilinogen 2.0 mg/dL (<2.0) 12/20/21 Unknown Ur Leukocyte Esterase Lg (Negative) 12/20/21 Unknown Urine WBC (Auto) < 1.0 /HPF (0.0-6.0) 12/20/21 Unknown Urine RBC (Auto) < 1.0 /HPF (0.0-6.0) 12/20/21 Unknown Salicylates < 0.3 mg/dL (2.8-20.0) L 12/20/21 00:19 Acetaminophen 5.0 ug/mL (10.0-30.0) L 12/20/21 00:19 Plasma/Serum Alcohol < 0.01 % (0-0.07) 12/20/21 00:19 [place]/IV: Voiding Method Condom Catheter Active Medications - Current Medications Current Medications: Generic Name Dose Route Start Last Admin Trade Name Freq PRN Reason Stop Dose Admin Acetaminophen 650 mg 12/20/21 02:46 Acetaminophen 325 Mg Tab PO Q4H PRN Pain MILD(1-3)/Fever >100.5/BROWN Aspirin 81 mg 12/21/21 10:00 12/24/21 15:54 Aspirin 81 Mg Tab Chew PO 81 mg QDAY KRISTINA Administration Atorvastatin Calcium 40 mg 12/20/21 22:00 12/24/21 21:55 Atorvastatin 40 Mg Tab PO 40 mg QHS RKISTINA Administration Dextrose 0 ml 12/20/21 02:46 Dextrose 50% In Water (25gm) 50 Ml Syringe IV Q30MIN PRN Hypoglycemia Protocol Haloperidol Lactate 5 mg 12/21/21 09:04 12/24/21 01:55 Haloperidol Lactate 5 Mg/1 Ml Inj IM 5 mg Q6H PRN Administration Agitation Hydralazine HCl 5 mg 12/21/21 19:44 12/21/21 21:01 Hydralazine 20 Mg/1 Ml Inj IV 5 mg Q30MIN PRN Administration Hypertension Ceftriaxone Sodium 1 gm in 50 mls @ 100 mls/hr 12/20/21 06:00 12/25/21 05:58 Rocephin/Ns 1 Gm/50 Ml IV 12/26/21 06:29 100 mls/hr Q24H KRISTINA Administration Protocol Insulin Human Lispro 0 unit 12/20/21 07:30 12/24/21 22:57 Insulin Lispro 100 Unit/Ml SUB-Q Not Given ACHS KRISTINA Protocol Levetiracetam 500 mg 12/20/21 14:00 12/24/21 21:55 Levetiracetam 500 Mg Tab PO 500 mg BID KRISTINA Administration Magnesium Hydroxide 30 ml 12/20/21 02:46 Magnesium Hydroxide (Mom) Oral Liqd Udc PO Q4H PRN Constipation Morphine Sulfate 2 mg 12/20/21 02:46 12/20/21 07:33 Morphine 2 Mg/1 Ml Inj IV 2 mg Q4H PRN Administration Pain, Moderate (4-6) Morphine Sulfate 4 mg 12/20/21 02:46 Morphine 4 Mg/1 Ml Inj IV Q4H PRN Pain , Severe (7-10) Ondansetron HCl 4 mg 12/20/21 02:46 Ondansetron 4 Mg/2 Ml Inj IV Q8H PRN Nausea And Vomiting Quetiapine Fumarate 25 mg 12/21/21 10:00 12/24/21 21:55 Quetiapine 25 Mg Tab PO 25 mg BID KRISTINA Administration Sodium Chloride 10 ml 12/20/21 10:00 12/24/21 21:55 Sodium Chloride 0.9% 10 Ml Flush Syringe IV 10 ml BID KRISTINA Administration Sodium Chloride 10 ml 12/20/21 02:46 Sodium Chloride 0.9% 10 Ml Flush Syringe IV PRN PRN LINE FLUSH Nutrition/Malnutrition Assess - Dietary Evaluation Nutrition/Malnutrition Findings: Nutrition Notes Start: 12/20/21 12:33 Freq: Status: Active Protocol: Document 12/20/21 12:33 QUANG (Rec: 12/20/21 12:41 QUANG [id number]) Nutrition Notes Need for Assessment generated from: MD Order,Education Initial or Follow up Brief Note Current Diagnosis Diabetes,Hypertension,Stroke Other Pertinent Diagnosis Elevated Troponin, Confusion. Current Diet Cardiac/Consistent Carbohydrates Diet (since B ). Height 6 ft Weight 86 kg [place] Body Weight (kg) 80.90 BMI 25.7 Intake Prior to Admission Good Weight change and time frame Pt denies having loss body weight [employer]. Weight Status Appropriate Subjective/Other Information RD consult for nutrition education assessment. No reports available on Pt's PO intake of meals at the time , will assess at F/U. Pt is on Room Air, O2 saturation @ 96%, according to Physical Assessment History notes. Pt still in critical condition , not a candidate for Nutrition Education at the time, will assess feasibility on F/U. Percent of energy/protein needs met: Prescribed Cardiac/Consistent Carbohydrates Diet provides for energy/protein needs (1, 977 Kcal/86 g) during LOS. Nutrition Intervention Follow-Up By: 12/27/21 Additional Comments Nutrition education will be provided on F/U, if feasible. Continue monitoring food tolerance, %PO intake of meals , and BM.
[2021-12-25] MEDS: QUEtiapine 25 MG TAB PO SCH ×2 (09:04→21:39)
[2021-12-25] MEDS: levETIRAcetam 500 MG TAB PO SCH ×2 (09:04→21:39)
[2021-12-25] MEDS: ASPIRIN 81 MG TAB CHEW PO SCH (09:04)
[2021-12-25] MEDS: carvediloL 3.125 MG TAB PO SCH ×2 (09:06→21:39)
[2021-12-25] MEDS: FUROSEMIDE 40 MG/4 ML INJ IV SCH (09:07)
[2021-12-25] MEDS: LISINOPRIL 5 MG TAB PO SCH (09:07)
[2021-12-26] MEDS: cefTRIAXone/NS 1 GM/50 ML 1 GM/50 ML BAG IV SCH (05:12)
[2021-12-26] MEDS: INSULIN LISPRO 100 UNIT/ML SUB-Q SCH ×2 (08:39→12:46)
--- NOTE | 2021-12-26 08:49 | Progress Note ---
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 Patient was admitted sometime in June 2021 and was supposed to be going for subacute rehab which he turned out. He lives by himself at home. He has home health. 12/21: Patient was confused this morning, ordered for Haldol IM as needed and initiated on Seroquel 25 mg twice daily. Patient also started on Keppra 500 twice daily. PT recommended subacute rehab, caseworker intake consulted for placement. 12/22: Patient appears more calm and cooperative today. Pending subacute rehab placement. Continue to follow clinically, pending cardiology eval and 2D echo report. 12/23: Plan for stress test tomorrow per cardiology recommendation. Pending subacute rehab placement. 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 Cardiology evaluated the patient Stress test negative for ischemia LVEF 20 to 25% --Acute systolic congestive heart failure; EF 20 to 25% Stress test negative for ischemia, nonischemic cardiomyopathy Added diuretics, beta-blockers, CARLO inhibitors, input output monitoring Fluid restriction, low-sodium diet, cardiology following -- Hypertensive urgency -We will resume routine home medications and monitor vital signs closely. -- Hx of CVA with left side weakness 2013 -possibly CP since 4 years old -left side myoclonus related to above -PT recommended subacute rehab -- Hx of spinal cord injury -he is with fecal and bladder incontinence -use diaper -- DVT prophylaxis -Patient placed on subcutaneous heparin. --Full code status -Patient is full code. --Discharge planning; awaiting placement Patient is medically stable for discharge Awaiting placement subacute versus SNF Discharge planning per case management History Interval history: I have seen and examined the patient at the bedside Patient's chart and medications reviewed Patient is alert and awake responding to simple questions appropriately Agitated and wants to get out of bed in restraints for safety Hospitalist Physical - Constitutional Vitals: Temp Pulse Resp BP Pulse Ox 98.7 F 63 18 158/102 95 12/26/21 07:54 12/26/21 07:54 12/26/21 07:54 12/26/21 07:54 12/26/21 07:54 General appearance: Present: no acute distress, well-nourished HEART Score - HEART Score Troponin: Troponin T 0.036 ng/mL (0.00-0.029) H 12/23/21 14:19 Results - Labs CBC & Chem 7: 12/21/21 04:31 12/24/21 04:25 Labs: Laboratory Last Values WBC 4.7 K/mm3 (4.5-11.0) 12/21/21 04:31 RBC 4.58 M/mm3 (3.65-5.03) 12/21/21 04:31 Hgb 11.2 gm/dl (11.8-15.2) L 12/21/21 04:31 Hct 34.7 % (35.5-45.6) L 12/21/21 04:31 MCV 76 fl (84-94) L 12/21/21 04:31 MCH 25 pg (28-32) L 12/21/21 04:31 MCHC 32 % (32-34) 12/21/21 04:31 RDW 15.1 % (13.2-15.2) 12/21/21 04:31 Plt Count 141 K/mm3 (140-440) 12/21/21 04:31 Lymph % (Auto) 32.5 % (13.4-35.0) 12/21/21 04:31 [place] % (Auto) 7.9 % (0.0-7.3) H 12/21/21 04:31 Eos % (Auto) 5.1 % (0.0-4.3) H 12/21/21 04:31 Baso % (Auto) 0.9 % (0.0-1.8) 12/21/21 04:31 Lymph # (Auto) 1.5 K/mm3 (1.2-5.4) 12/21/21 04:31 [place] # (Auto) 0.4 K/mm3 (0.0-0.8) 12/21/21 04:31 Eos # (Auto) 0.2 K/mm3 (0.0-0.4) 12/21/21 04:31 Baso # (Auto) 0.0 K/mm3 (0.0-0.1) 12/21/21 04:31 Seg Neutrophils % 53.6 % (40.0-70.0) 12/21/21 04:31 Seg Neutrophils # 2.5 K/mm3 (1.8-7.7) 12/21/21 04:31 PT 13.6 Sec. (12.2-14.9) 12/20/21 00:19 INR 0.94 (0.87-1.13) 12/20/21 00:19 APTT 37.1 Sec. (24.2-36.6) H 12/20/21 00:19 Sodium 140 mmol/L (137-145) 12/24/21 04:25 Potassium 4.0 mmol/L (3.6-5.0) 12/24/21 04:25 Chloride 105.6 mmol/L (98-107) 12/24/21 04:25 Carbon Dioxide 22 mmol/L (22-30) 12/24/21 04:25 Anion Gap 16 mmol/L 12/24/21 04:25 BUN 32 mg/dL (9-20) H 12/24/21 04:25 Creatinine 1.2 mg/dL (0.8-1.3) 12/24/21 04:25 Estimated GFR > 60 ml/min 12/24/21 04:25 BUN/Creatinine Ratio 27 % 12/24/21 04:25 Glucose 87 mg/dL (75-100) 12/24/21 04:25 POC Glucose 94 mg/dL (70-105) 12/26/21 07:55 Lactic Acid 1.10 mmol/L (0.7-2.0) 12/20/21 00:19 Calcium 9.0 mg/dL (8.4-10.2) 12/24/21 04:25 Total Bilirubin 0.20 mg/dL (0.1-1.2) 12/20/21 00:19 AST 24 units/L (5-40) 12/20/21 00:19 ALT 24 units/L (7-56) 12/20/21 00:19 Alkaline Phosphatase 67 units/L (35-129) 12/20/21 00:19 Ammonia 27.0 umol/L (25-60) 12/20/21 00:19 Total Creatine Kinase 448 units/L (55-170) H 12/20/21 00:19 Troponin T 0.036 ng/mL (0.00-0.029) H 12/23/21 14:19 Total Protein 6.7 g/dL (6.3-8.2) 12/20/21 00:19 Albumin 3.8 g/dL (3.9-5) L 12/20/21 00:19 Albumin/Globulin Ratio 1.3 % 12/20/21 00:19 Triglycerides 53 mg/dL (2-149) 12/20/21 00:19 Cholesterol 222 mg/dL (50-199) H 12/20/21 00:19 LDL Cholesterol Direct 129 mg/dL (50-130) 12/20/21 00:19 HDL Cholesterol 72 mg/dL (40-59) H 12/20/21 00:19 Cholesterol/HDL Ratio 3.08 % 12/20/21 00:19 TSH 2.820 mlU/mL (0.270-4.200) 12/20/21 00:19 Urine Color Yellow (Yellow) 12/20/21 Unknown Urine Turbidity Slightly-cloudy (Clear) 12/20/21 Unknown Urine pH 6.0 (5.0-7.0) 12/20/21 Unknown Ur Specific [place] 1.016 (1.003-1.030) 12/20/21 Unknown Urine Protein <15 mg/dl mg/dL (Negative) 12/20/21 Unknown Urine Glucose (UA) Neg mg/dL (Negative) 12/20/21 Unknown Urine Ketones Neg mg/dL (Negative) 12/20/21 Unknown Urine Blood Sm (Negative) 12/20/21 Unknown Urine Nitrite Neg (Negative) 12/20/21 Unknown Urine Bilirubin Neg (Negative) 12/20/21 Unknown Urine Urobilinogen 2.0 mg/dL (<2.0) 12/20/21 Unknown Ur Leukocyte Esterase Lg (Negative) 12/20/21 Unknown Urine WBC (Auto) < 1.0 /HPF (0.0-6.0) 12/20/21 Unknown Urine RBC (Auto) < 1.0 /HPF (0.0-6.0) 12/20/21 Unknown Salicylates < 0.3 mg/dL (2.8-20.0) L 12/20/21 00:19 Acetaminophen 5.0 ug/mL (10.0-30.0) L 12/20/21 00:19 Plasma/Serum Alcohol < 0.01 % (0-0.07) 12/20/21 00:19 [place]/IV: Voiding Method Condom Catheter Active Medications - Current Medications Current Medications: Generic Name Dose Route Start Last Admin Trade Name Freq PRN Reason Stop Dose Admin Acetaminophen 650 mg 12/20/21 02:46 Acetaminophen 325 Mg Tab PO Q4H PRN Pain MILD(1-3)/Fever >100.5/BROWN Aspirin 81 mg 12/21/21 10:00 12/25/21 09:04 Aspirin 81 Mg Tab Chew PO 81 mg QDAY KRISTINA Administration Atorvastatin Calcium 40 mg 12/20/21 22:00 12/25/21 21:39 Atorvastatin 40 Mg Tab PO 40 mg QHS KRISTINA Administration Carvedilol 3.125 mg 12/25/21 10:00 12/25/21 21:39 Carvedilol 3.125 Mg Tab PO 3.125 mg BID KRISTINA Administration Dextrose 0 ml 12/20/21 02:46 Dextrose 50% In Water (25gm) 50 Ml Syringe IV Q30MIN PRN Hypoglycemia Protocol Furosemide 40 mg 12/25/21 10:00 12/25/21 09:07 Furosemide 40 Mg/4 Ml Inj IV 40 mg QDAY KRISTINA Administration Haloperidol Lactate 5 mg 12/21/21 09:04 12/24/21 01:55 Haloperidol Lactate 5 Mg/1 Ml Inj IM 5 mg Q6H PRN Administration Agitation Hydralazine HCl 5 mg 12/21/21 19:44 12/21/21 21:01 Hydralazine 20 Mg/1 Ml Inj IV 5 mg Q30MIN PRN Administration Hypertension Insulin Human Lispro 0 unit 12/20/21 07:30 12/26/21 08:39 Insulin Lispro 100 Unit/Ml SUB-Q Not Given ACHS [facility] Protocol Levetiracetam 500 mg 12/20/21 14:00 12/25/21 21:39 Levetiracetam 500 Mg Tab PO 500 mg BID KRISTINA Administration Lisinopril 5 mg 12/25/21 10:00 12/25/21 09:07 Lisinopril 5 Mg Tab PO 5 mg QDAY KRISTINA Administration Magnesium Hydroxide 30 ml 12/20/21 02:46 Magnesium Hydroxide (Mom) Oral Liqd Udc PO Q4H PRN Constipation Morphine Sulfate 2 mg 12/20/21 02:46 12/20/21 07:33 Morphine 2 Mg/1 Ml Inj IV 2 mg Q4H PRN Administration Pain, Moderate (4-6) Morphine Sulfate 4 mg 12/20/21 02:46 Morphine 4 Mg/1 Ml Inj IV Q4H PRN Pain , Severe (7-10) Ondansetron HCl 4 mg 12/20/21 02:46 Ondansetron 4 Mg/2 Ml Inj IV Q8H PRN Nausea And Vomiting Quetiapine Fumarate 25 mg 12/21/21 10:00 12/25/21 21:39 Quetiapine 25 Mg Tab PO 25 mg BID KRISTINA Administration Sodium Chloride 10 ml 12/20/21 10:00 12/25/21 21:40 Sodium Chloride 0.9% 10 Ml Flush Syringe IV 10 ml BID KRISTINA Administration Sodium Chloride 10 ml 12/20/21 02:46 Sodium Chloride 0.9% 10 Ml Flush Syringe IV PRN PRN LINE FLUSH Nutrition/Malnutrition Assess - Dietary Evaluation Nutrition/Malnutrition Findings: Nutrition Notes Start: 12/20/21 12:33 Freq: Status: Active Protocol: Document 12/20/21 12:33 QUANG (Rec: 12/20/21 12:41 QUANG [id number]) Nutrition Notes Need for Assessment generated from: MD Order,Education Initial or Follow up Brief Note Current Diagnosis Diabetes,Hypertension,Stroke Other Pertinent Diagnosis Elevated Troponin, Confusion. Current Diet Cardiac/Consistent Carbohydrates Diet (since B ). Height 6 ft Weight 86 kg [place] Body Weight (kg) 80.90 BMI 25.7 Intake Prior to Admission Good Weight change and time frame Pt denies having loss body weight [employer]. Weight Status Appropriate Subjective/Other Information RD consult for nutrition education assessment. No reports available on Pt's PO intake of meals at the time , will assess at F/U. Pt is on Room Air, O2 saturation @ 96%, according to Physical Assessment History notes. Pt still in critical condition , not a candidate for Nutrition Education at the time, will assess feasibility on F/U. Percent of energy/protein needs met: Prescribed Cardiac/Consistent Carbohydrates Diet provides for energy/protein needs (1, 977 Kcal/86 g) during LOS. Nutrition Intervention Follow-Up By: 12/27/21 Additional Comments Nutrition education will be provided on F/U, if feasible. Continue monitoring food tolerance, %PO intake of meals , and BM.
[2021-12-26] MEDS: FUROSEMIDE 40 MG/4 ML INJ IV SCH (09:42)
[2021-12-26] MEDS: QUEtiapine 25 MG TAB PO SCH (09:42)
[2021-12-26] MEDS: ASPIRIN 81 MG TAB CHEW PO SCH (09:42)
[2021-12-26] MEDS: levETIRAcetam 500 MG TAB PO SCH (09:42)
[2021-12-26] MEDS: carvediloL 3.125 MG TAB PO SCH (09:42)
[2021-12-26] MEDS: LISINOPRIL 5 MG TAB PO SCH (09:42)
--- NOTE | 2021-12-26 11:43 | Progress Note ---
Assessment and Plan - Patient Problems (1) Hypertension Current Visit: No Status: Acute Subjective Date of service: 12/26/21 Interval history: CONFUSED,,,HAS NO C/O Objective Vital Signs Temp Pulse Resp BP BP Pulse Ox 12/26/21 10:00 97 12/26/21 07:54 98.7 F 63 18 158/102 95 12/25/21 22:00 99 12/25/21 21:44 97.7 F 71 18 166/87 98 12/25/21 15:25 99.0 F 67 22 132/80 98 - Physical Examination General: No Apparent Distress, Other (CONFUSED) Neck: Positive: neck supple Cardiac: Positive: Reg Rate and Rhythm Lungs: Positive: clear to auscultation Abdomen: Positive: Unremarkable Extremities: Present: normal
[2021-12-26 12:05] VITALS: BP 126/82
--- NOTE | 2021-12-26 13:00 | Discharge Summary ---
Providers - Providers Date of Admission: 12/20/21 02:46 Date of discharge: 12/26/21 Attending physician: LOLA LOW 12/20/21 02:46 Consult to Dietitian/Nutrition [CONS] Routine Physician Instructions: Reason For Exam: Reason for Consult: Diet education Consult to Physician [CONS] Routine Comment: Consulting Provider: PETE OLIVA Physician Instructions: Reason For Exam: elevated troponin 12/20/21 09:56 Consult to Physician [CONS] Routine Comment: Consulting Provider: CHUCKY CONWAY Physician Instructions: Reason For Exam: confusion 12/20/21 12:43 Physical Therapy Evaluation and Treat [CONS] Routine Comment: Reason For Exam: Debility Primary care physician: TECHNICAL SYSTEM ANALYST Hospitalization Reason for admission: Acute metabolic encephalopathy Condition: Stable Pertinent studies: Chest x-ray no acute abnormality noted CT head without contrast; no acute abnormality noted MRI brain; no clear evidence of acute infarct old infarcts ventriculomegaly and cerebral atrophy Echocardiogram; EF 20 to 25% global hypokinesis Nuclear stress test; negative ischemia transfer text yes Hospital course: 71-year-old -Serbian male with known history of hypertension, 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 Patient was admitted sometime in June 2021 and was supposed to be going for subacute rehab which he refused. He lives by himself at home. Patient was managed appropriately, evaluated by neurology had extensive negative work-up Patient was also seen by cardiology for non-ST elevation CO, stress test was d one which was negative for ischemia echocardiogram showed acute systolic congestive heart failure cardiology optimize the medications patient received physical therapy occupational therapy who recommended subacute rehab versus SNF. Today patient is comfortable no new complaints, vital signs stable Case management has processed SNF placement, patient is being discharged and transferred [facility] today Patient is hemodynamically and clinically stable at discharge. Patient was also advised to follow-up with primary care physician, neurologist, dial refinisher per schedule Discharge diagnosis -- Acute encephalopathy/postictal state Extensive neuro work-up done reviewed PT OT, SNF placement Aspirin and statin --Acute confusional state; improved Clinical picture findings consistent with seizure Neurology following Neuro recommend Keppra, aspirin and statin Seizure precautions, Ativan as needed for seizures Physical therapy occupational therapy Do not drive, PT evaluation prior to discharge Follow outpatient neurology -- Elevated troponin/NSTEMI type II Possibly type II troponin leak However will trend troponin levels. Cardiology evaluated the patient Stress test negative for ischemia LVEF 20 to 25% --Acute systolic congestive heart failure; EF 20 to 25% Stress test negative for ischemia, nonischemic cardiomyopathy Added diuretics, beta-blockers, CARLO inhibitors, input output monitoring Fluid restriction, low-sodium diet, cardiology following -- Hypertensive urgency -We will resume routine home medications and monitor vital signs closely. -- Hx of CVA with left side weakness 2013 -possibly CP since 4 years old -left side myoclonus related to above -PT recommended subacute rehab -- Hx of spinal cord injury -he is with fecal and bladder incontinence -use diaper -- DVT prophylaxis -Patient placed on subcutaneous heparin. --Full code status -Patient is full code. Disposition: [facility] Final Discharge Diagnosis (Prints w/discharge instructions): Acute metabolic encephalopathy. Possible postictal state. Acute confusional state. Non-ST elevation CO type II. Acute systolic congestive heart failure. Acute cardiomyopathy EF 20 to 25%. Hypertensive urgency resolved. History of CVA with left-sided weakness 2013. History of spinal cord injury Time spent for discharge: 35 minutes Exam - Constitutional Vitals: Temp Pulse Resp BP Pulse Ox 98.6 F 86 18 126/82 95 12/26/21 11:23 12/26/21 11:23 12/26/21 11:23 12/26/21 11:23 12/26/21 11:23 Plan Activity: advance as tolerated, fall precautions Diet: other (Cardiac diet as tolerated) Special Instructions: physical therapy Additional Instructions: Fall precautions. If you have worsening symptoms contact MD or go to the nearest emergency room as needed. Advised to see primary care physician,Neurologist and dial refinisher per schedule Follow up with: SHRUTHI VOGEL MD [Primary Care Provider] - 7 Days BELL MOISE MD [Staff Physician] - 7 Days LESTER NEVES MD [Staff Physician] - 14 Days Prescriptions: carvediloL [Coreg] 3.125 mg PO BID #60 tablet Aspirin EC [Halfprin EC] 81 mg PO QDAY #30 tablet. levETIRAcetam [Keppra TAB] 500 mg PO BID #60 tablet Furosemide [Lasix TAB] 40 mg PO QDAY #30 tablet AtorvaSTATin [Lipitor] 40 mg PO QHS #30 tablet QUEtiapine [SEROquel] 25 mg PO BID #60 tablet traMADoL [Ultram 50 MG tab] 50 mg PO Q6HR PRN #10 tablet PRN Reason: Pain lisinopriL [Zestril TAB] 5 mg PO QDAY #30 tablet
--- NOTE | 2021-12-29 11:03 | Electrocardiograph Report ---
[facility] Test Date: 2021-12-19 Test Time: 23:47:36 Pat Name: VIJI LOMBARDO Department: Room: A471 Gender: M Hog Room Supervisor: DENILSON : 1950 Requested By: BAUTISTA STAHL Order Number: [id number] Reading MD: Ramesh Madden Measurements Intervals [place] Rate: 62 P: 72 RI: 197 QRS: -4 QRSD: 117 T: 222 QT: 429 QTc: 437 Interpretive Statements Sinus rhythm LVH with secondary repolarization abnormality Anterior ST elevation, probably due to LVH Compared to ECG 07/13/2021 00:33:31 ST&T wave deviation now present-consider ischemia Sinus tachycardia no longer present Electronically Signed On 12-29-2021 11:03:03 EDT by Ramesh Madden
== END 2021-12-26 15:14 | DRG 280 ==
LOC: ED 23:03 → 4A 12-20 02:46
PROVIDERS: ADMIT Internal Medicine Geriatric Medicine; ATTEND Internal Medicine
DX: I16.0 Hypertensive urgency (principal); I21.A1 Myocardial infarction type 2; I50.21 Acute systolic (congestive) heart failure; G93.41 Metabolic encephalopathy; G40.89 Other seizures; I69.354 Hemiplegia and hemiparesis following cerebral infarction affecting left non-dominant side; I42.8 Other cardiomyopathies; Z20.822 Contact with and (suspected) exposure to COVID-19; E11.9 Type 2 diabetes mellitus without complications; E78.5 Hyperlipidemia, unspecified; Z60.2 Problems related to living alone; I11.0 Hypertensive heart disease with heart failure; F03.90 Unspecified dementia, unspecified severity, without behavioral disturbance, psychotic disturbance, mood disturbance, and anxiety; Z79.899 Other long term (current) drug therapy
CPT/HCPCS: 36415; 70450; 70553; 71045; 78452; 80048; 80053; 80061; 80320; 81001; 82140; 82550; 82962; 84443; 84484; 85025; 85610; 85730; 87076; 87086; 87186; 93005; 93017; 93306; 95819; G0378; A9502; A9575; C8929; G0480; J0360; J0696; J1630; J1940; J2270; J2785; J7040; U0003